=== PATIENT | female | born 1935 | race Caucasian/White ===

== ENCOUNTER → 2016-12-23 | Outpatient (CLI) | payer MEDICARE, OTHER ==
--- NOTE | 2016-12-24 09:58 | Diagnostic Imaging Report ---
EXAMINATION: Bilateral screening mammogram 2D views with tomosynthesis. The current study was also evaluated with a Computer Aided Detection (CAD) system. INDICATION: Screening. PERSONAL HISTORY: No current complaints stated on the questionnaire. COMPARISON: 08/05/2015. FINDINGS: The breasts are composed of heterogeneously dense parenchyma which may decrease mammographic sensitivity. There are scattered benign-appearing calcifications seen. Allowing for technique and positional differences, no suspicious change is seen. IMPRESSION: Dense breasts with no definite change. ACR BI-RADS Category 2: Benign findings. Result letter will be mailed to the patient. Note: At least 10% of breast cancer is not imaged by mammography. Dictated by: Dictated on workstation # [id number]
== END ==
LOC: RAD 12:52
PROVIDERS: ATTEND Family Medicine
DX: Z12.31 Encounter for screening mammogram for malignant neoplasm of breast (principal)
CPT/HCPCS: 77067

== ENCOUNTER → 2017-09-19 | Outpatient (CLI) | payer MEDICARE, OTHER ==
[2017-09-19 15:52] LABS: BUN/CREATININE RATIO 21; CREATININE SERUM 0.81 MG/DL (0.60-1.30); GFR ESTIMATED > 60
== END ==
LOC: LAB 15:10
PROVIDERS: ATTEND Family Medicine
DX: N28.9 Disorder of kidney and ureter, unspecified (principal)
CPT/HCPCS: 36415; 82565; 84520

== ENCOUNTER → 2017-09-22 | Outpatient (CLI) | payer MEDICARE, OTHER ==
[~2017-09-22] MED LIST: CATHETER FLUSH 10 ML SYR IV PRN; IOHEXOL 350 MG/ML 100 ML (OMNIPAQUE 350) VIAL IV ONE; NS 250 ML (IVPB) BAG IV ONE
--- NOTE | 2017-09-22 16:52 | Diagnostic Imaging Report ---
PROCEDURE: CT neck soft tissue with contrast. TECHNIQUE: Multiple contiguous axial images were obtained through the neck after the administration of contrast. INDICATION: Neck swelling. COMPARISON: Thyroid ultrasound of 07/17/12. FINDINGS: Marked enlargement of the thyroid gland with numerous calcified and noncalcified nodules is compatible with a multinodular goiter. The right thyroid lobe is slightly asymmetrically enlarged and has associated dominant thickening at the level of the isthmus. The right thyroid lobe measures 5.8 x 3.6 x 6.5 cm when including the enlarged isthmus. Heterogeneous nodular appearance is similar to prior thyroid ultrasound of 07/17/12. No cervical lymphadenopathy. Calcified plaques of the bilateral proximal internal carotid arteries do not result in significant stenosis. Neck arteries are widely patent. No abnormal mucosal thickening in the pharynx or larynx. There appears to be chronic complete opacification of the right sphenoid sinus with low-attenuation material which is likely inspissated in nature. There is associated periosteal thickening also indicative of chronicity. No concerning abnormality in the cervical spine. Multilevel severe degenerative changes are present. There also may be changes from prior arthrodesis of C3-C4 and C5-C6. Grade 1 anterolisthesis of C7 on T1 is associated with facet osteoarthritis. Lung apices are clear. IMPRESSION: 1. Multinodular thyroid goiter is asymmetrically enlarged in the right thyroid lobe and likely accounts for the right-sided neck swelling. Dictated by: Dictated on workstation # [id number]
== END ==
LOC: RAD 15:21
PROVIDERS: ATTEND Family Medicine
DX: E04.2 Nontoxic multinodular goiter (principal); N28.9 Disorder of kidney and ureter, unspecified
CPT/HCPCS: 70491

== ENCOUNTER 2020-02-12 08:20 | Inpatient (IN) | payer MEDICARE, OTHER ==
[~2020-02-12] VITALS: Ht 160 cm; Wt 54.5 kg
[2020-02-12] VITALS (10 sets, daily range): BP systolic 143–171; BP diastolic 71–93
[2020-02-12] MEDS ORDERED: NS IV 1000 ML 1,000 ML IV STA (08:29)
[2020-02-12] MEDS ORDERED: FAMOTIDINE 20MG/2ML IV (PEPCID) IV STA (08:29)
--- NOTE | 2020-02-12 08:29 | ED GI ---
General Stated Complaint: N/V Source of Information: Patient, EMS Exam Limitations: No Limitations History of Present Illness Date Seen by Provider: Feb 12, 2020 Time Seen by Provider: 08:29 Initial Comments 84-year-old female presents with epigastric discomfort, nausea and vomiting for 2 days. Patient reports that the discomfort is there mainly when she is vomiting. She is having a hard time keeping anything down. She denies any dark tarry stool. Her last bowel movement was 2 days ago. She does not have any lower mid abdominal pain. She has no fevers, chills, cough. Patient reports that she's been under a lot of stress recently and been taken anxiety medications due to the of her . Patient does not have any known exposure to COVID. She has no loss of sense of taste or smell. No other systemic complaint. Allergies and Home Medications Allergies Coded Allergies: No Allergy Information Available (Unverified , 02/12/20) Home Medications ALPRAZolam 0.25 Mg Tablet, 0.25 MG PO BID PRN for ANXIETY, (Reported) Atorvastatin Calcium 10 Mg Tablet, 10 MG PO DAILY, (Reported) Sertraline HCl 25 Mg Tablet, 25 MG PO DAILY, (Reported) Patient Home Medication List Home Medication List Reviewed: Yes Review of Systems Review of Systems Constitutional: No chills, No fever Respiratory: Denies Cough, Denies Shortness of Air Cardiovascular: Denies Chest Pain, Denies Edema, Denies Irregular Heart Rate, Denies Palpitations Gastrointestinal: See HPI; Denies Blood Streaked Stools, Denies Constipated, Denies Diarrhea; Nausea; Denies Rectal Bleeding; Vomiting Genitourinary: No Symptoms Reported Musculoskeletal: no symptoms reported Skin: no symptoms reported Psychiatric/Neurological: No Symptoms Reported Endocrine: No Symptoms Reported Past Aveynsm-Dsbcmz-Jllkib Hx Past Med/Social Hx: Reviewed Nursing Past Med/Soc Hx Physical Exam Vital Signs Vital Signs - First Documented 02/12/20 08:20 Temp 36.2 Pulse 88 Resp 16 B/P (MAP) 177/88 (117) Pulse Ox 97 O2 Delivery Room Air Capillary Refill : Height/Weight/BMI Height: '" Weight: lbs. oz. kg; BMI Method: General Appearance: WD/WN, no apparent distress Neck: full range of motion, supple Respiratory: lungs clear, normal breath sounds, no respiratory distress Cardiovascular: normal peripheral pulses, regular rate, rhythm Gastrointestinal: soft; No distended, No guarding, No rebound; tenderness (mild tenderness epigastric) Extremities: normal range of motion, non-tender Back: no CVA tenderness Neurologic/Psychiatric: alert, normal mood/affect, oriented x 3 Skin: normal color, warm/dry Progress/Results/Core Measures Results/Orders Lab Results Laboratory Tests Test 02/12/20 08:25 02/12/20 08:43 Range/Units White Blood Count 9.4 4.3-11.0 10^3/uL Red Blood Count 4.00 3.80-5.11 10^6/uL Hemoglobin 12.7 11.5-16.0 g/dL Hematocrit 38 35-52 % Mean Corpuscular Volume 96 80-99 fL Mean Corpuscular Hemoglobin 32 25-34 pg Mean Corpuscular Hemoglobin Concent 33 32-36 g/dL Red Cell Distribution Width 12.1 10.0-14.5 % Platelet Count 224 130-400 10^3/uL Mean Platelet Volume 10.1 9.0-12.2 fL Immature Granulocyte % (Auto) 0 % Neutrophils (%) (Auto) 74 42-75 % Lymphocytes (%) (Auto) 16 12-44 % Monocytes (%) (Auto) 10 0-12 % Eosinophils (%) (Auto) 0 0-10 % Basophils (%) (Auto) 0 0-10 % Neutrophils # (Auto) 6.9 1.8-7.8 10^3/uL Lymphocytes # (Auto) 1.5 1.0-4.0 10^3/uL Monocytes # (Auto) 0.9 0.0-1.0 10^3/uL Eosinophils # (Auto) 0.0 0.0-0.3 10^3/uL Basophils # (Auto) 0.0 0.0-0.1 10^3/uL Immature Granulocyte # (Auto) 0.0 0.0-0.1 10^3/uL Sodium Level 141 135-145 MMOL/L Potassium Level 4.2 3.6-5.0 MMOL/L Chloride Level 104 98-107 MMOL/L Carbon Dioxide Level 26 21-32 MMOL/L Anion Gap 11 5-14 MMOL/L Blood Urea Nitrogen 18 7-18 MG/DL Creatinine 0.85 0.60-1.30 MG/DL Estimat Glomerular Filtration Rate > 60 BUN/Creatinine Ratio 21 Glucose Level 151 H 70-105 MG/DL Calcium Level 9.1 8.5-10.1 MG/DL Corrected Calcium 9.1 8.5-10.1 MG/DL Total Bilirubin 0.9 0.1-1.0 MG/DL Aspartate Amino Transf (AST/SGOT) 21 5-34 U/L Alanine Aminotransferase (ALT/SGPT) 15 0-55 U/L Alkaline Phosphatase 94 40-136 U/L C-Reactive Protein High Sensitivity 0.77 H 0.00-0.50 MG/DL Total Protein 6.8 6.4-8.2 GM/DL Albumin 4.0 3.2-4.5 GM/DL Lipase 36 8-78 U/L Urine Color YELLOW Urine Clarity CLEAR Urine pH 5.5 5-9 Urine Specific [place] >=1.030 1.016-1.022 Urine Protein TRACE H NEGATIVE Urine Glucose (UA) NEGATIVE NEGATIVE Urine Ketones 1+ H NEGATIVE Urine Nitrite POSITIVE H NEGATIVE Urine Bilirubin NEGATIVE NEGATIVE Urine Urobilinogen 1.0 < = 1.0 MG/DL Urine Leukocyte Esterase NEGATIVE NEGATIVE Urine RBC (Auto) TRACE-I NEGATIVE Urine RBC 0-2 /HPF Urine WBC 5-10 H /HPF Urine Squamous Epithelial Cells 2-5 /HPF Urine Crystals PRESENT H /LPF Urine Calcium Oxalate Crystals RARE H /LPF Urine Bacteria LARGE H /HPF Urine Casts NONE /LPF Urine Mucus NEGATIVE /LPF Urine Culture Indicated YES My Orders Orders - WOOD,J CARLOS L DO Cbc With Automated Diff (02/12/20 08:29) Comprehensive Metabolic Panel (02/12/20 08:29) Hs C Reactive Protein (02/12/20 08:29) Lipase (02/12/20 08:29) Ua Culture If Indicated (02/12/20 08:29) Acute Abd Series (02/12/20 08:29) Ns Iv 1000 Ml (Sodium Chloride 0.9%) (02/12/20 08:29) Famotidine Injection (Pepcid Injection) (02/12/20 08:29) Urine Culture (02/12/20 08:43) Ceftriaxone For Iv Use (Rocephin For I (02/12/20 09:15) Ct Abdomen/Pelvis W (02/12/20 09:15) Iohexol Injection (Omnipaque 350 Mg/Ml 1 (02/12/20 09:30) Received Contrast (Hold Metformin- Contr (02/12/20 09:30) Ns (Ivpb) (Sodium Chloride 0.9% Ivpb Bag (02/12/20 09:30) Mrsa Screen (Icu,Preop,Cath) (02/12/20 12:01) Mrsa Nursing Screening/Treatme .admit (02/12/20 12:01) Dexamethasone Injection (Decadron Inje (02/12/20 12:18) Ondansetron Injection (Zofran Injectio (02/12/20 12:18) Rocuronium 5 Ml Syringe (Rocuronium 5 Ml (02/12/20 12:18) Propofol Injection (Diprivan Injection) (02/12/20 12:18) Glycopyrrolate Injection (Robinul Inject (02/12/20 12:18) Neostigmine 3 Mg/3 Ml Vial (Neostigmine (02/12/20 12:18) Lidocaine 2% Pf 5 Ml (Xylocaine 2% Pf) (02/12/20 12:18) Sevoflurane (15 Min) Inhal Veronique (Ultane ( (02/12/20 12:18) Fentanyl Injection (Sublimaze Injection (02/12/20 12:19) Lidocaine/Epi 1% 1:200,00 (Xylocaine/Epi (02/12/20 12:21) Medications Given in ED Current Medications Medications Dose Ordered Sig/Rohan Route Start Time Stop Time Status Last Admin Dose Admin Iohexol 75 ml ONCE ONCE IV 02/12/20 09:30 02/12/20 09:31 DC 02/12/20 09:47 66 ML Sodium Chloride 100 ml ONCE ONCE IV 02/12/20 09:30 02/12/20 09:31 DC 02/12/20 09:47 80 ML Vital Signs/I&O 02/12/20 08:20 Temp 36.2 Pulse 88 Resp 16 B/P (MAP) 177/88 (117) Pulse Ox 97 O2 Delivery Room Air Progress Progress Note : Progress Note Patient seen by Dr. Starks in the ER. They suspect that she has a femoral hernia that is incarcerated on the right. Able to or for further treatment and evaluation Diagnostic Imaging Diagonstic Imaging: Xray, CT Plain Films/CT/US/NM/MRI: abdomen Comments [facility] [place], [place] NAME: MONIKA SINGER [facility] REC#: [id number] PT STATUS: REG ER : 1935 PHYSICIAN: J CARLOS WOOD DO ADMIT DATE: 02/12/20/ER Draft Date of Exam:02/12/20 CT ABDOMEN/PELVIS W INDICATION: Abdominal pain. TECHNIQUE: Multiple contiguous axial images were obtained through the abdomen and pelvis after administration of intravenous contrast. Auto Exposure Controls were utilized during the CT exam to meet ALARA standards for radiation dose reduction. All CT scans use one or more of the following dose optimizing techniques: automated exposure control, MA and/or KvP adjustment based on patient size and exam type or iterative reconstruction. There is no previous CT the abdomen and pelvis for comparison Visualized portions of the lung bases are clear. There were no pleural fluid collections. There is no free intraperitoneal air. The liver shows no focal lesions. Gallbladder appears normal. The spleen, adrenals, and pancreas appear normal. Kidneys bilaterally appear unremarkable. There is no retroperitoneal mass or adenopathy. There is a minimal trace of free fluid around the liver. Patient's had previous hysterectomy. There is diffuse dilatation of small bowel loops. There appears to be obstruction at the level of a right inguinal hernia with decompression of small bowel loops beyond this point. Colon shows mild to moderate stool but is not dilated. IMPRESSION: Evidence of small bowel obstruction due to a incarcerated right inguinal hernia. There is no abdominal mass lesion. There is a trace of free fluid around the liver. Departure Communication (Admissions) Time/Spoke to Admitting Phy: 11:49 Patient seen in the ER by Dr. Starks Impression Primary Impression: Small bowel obstruction Additional Impression: Incarcerated femoral hernia Disposition: ADMITTED INPATIENT Condition: Stable Admissions Decision to Admit Reason: Admit from ER (General) Decision to Admit/Date: Feb 12, 2020 Time/Decision to Admit Time: 11:50 Departure-Patient Inst. Referrals: ADONIS PRASAD DO (PCP/Family) Primary Care Physician J CARLOS WOOD DO Feb 12, 2020 08:29
[2020-02-12] MEDS ORDERED: SERT25TA5 PO (08:40)
[2020-02-12] MEDS ORDERED: ATOR10TA66 PO (08:40)
[2020-02-12] MEDS ORDERED: ALPR0.254 PO (08:40)
[2020-02-12 08:46] LABS: BASOPHILS % (AUTO) 0 % (0-10); EOSINOPHILS % (AUTO) 0 % (0-10); HEMATOCRIT 38 % (35-52); HEMOGLOBIN 12.7 g/dL (11.5-16.0); LYMPHOCYTES # (AUTO) 1.5 10^3/uL (1.0-4.0); LYMPHOCYTES % (AUTO) 16 % (12-44); MEAN CORPUSCULAR HEMOGLOBIN 32 pg (25-34); MEAN CORPUSCULAR HGB CONC 33 g/dL (32-36); MEAN CORPUSCULAR VOLUME 96 fL (80-99); MEAN PLATELET VOLUME 10.1 fL (9.0-12.2); MONOCYTES # (AUTO) 0.9 10^3/uL (0.0-1.0); MONOCYTES % (AUTO) 10 % (0-12); NEUTROPHILS # (AUTO) 6.9 10^3/uL (1.8-7.8); NEUTROPHILS % (AUTO) 74 % (42-75); PLATELET COUNT 224 10^3/uL (130-400); WHITE BLOOD COUNT 9.4 10^3/uL (4.3-11.0)
[2020-02-12 08:56] LABS: BILIRUBIN,URINE NEGATIVE (NEGATIVE); CLARITY,URINE CLEAR; COLOR,URINE YELLOW; GLUCOSE, URINE (UA) NEGATIVE (NEGATIVE); KETONES,URINE 1+ (NEGATIVE); LEUKOCYTE ESTERASE ,URINE NEGATIVE (NEGATIVE); NITRITE,URINE POSITIVE (NEGATIVE); PH,URINE 5.5 (5-9); PROTEIN,URINE TRACE (NEGATIVE)
--- NOTE | 2020-02-12 09:00 | NUR ---
TECH TALKED WITH DAUGHTER ON THE PHONE ET UPDATE GIVEN AND NOTIFIED HER WE WOULD CALL WHEN WE KNEW MORE.
[2020-02-12 09:08] LABS: CHLORIDE 104 MMOL/L (98-107); POTASSIUM 4.2 MMOL/L (3.6-5.0); SODIUM 141 MMOL/L (135-145)
[2020-02-12 09:10] LABS: CALCIUM 9.1 MG/DL (8.5-10.1)
[2020-02-12 09:11] LABS: GLUCOSE 151 MG/DL (70-105); TOTAL PROTEIN 6.8 GM/DL (6.4-8.2)
[2020-02-12 09:12] LABS: CARBON DIOXIDE 26 MMOL/L (21-32)
[2020-02-12 09:13] LABS: BILIRUBIN,TOTAL 0.9 MG/DL (0.1-1.0)
[2020-02-12 09:13] LABS: BACTERIA,URINE LARGE /HPF; CALCIUM OXALATE CRYSTALS,UR RARE /LPF; RBC,URINE 0-2 /HPF
[2020-02-12 09:14] LABS: ALKALINE PHOSPHATASE 94 U/L (40-136); CREATININE SERUM 0.85 MG/DL (0.60-1.30); GFR ESTIMATED > 60
[2020-02-12 09:15] LABS: BUN/CREATININE RATIO 21
[2020-02-12] MEDS ORDERED: cefTRIAXone FOR IV USE 1,000 MG in WATER (STERILE) FOR INJECTION 10 ML IV STA (09:15)
[2020-02-12 09:17] LABS: ALANINE AMINOTRANSFERASE 15 U/L (0-55)
--- NOTE | 2020-02-12 09:17 | NUR ---
IN TALKING TO THE PT AT THIS TIME.
[2020-02-12 09:18] LABS: LIPASE 36 U/L (8-78)
--- NOTE | 2020-02-12 09:22 | Diagnostic Imaging Report ---
INDICATION: Nausea and vomiting EXAMINATION: Portable AP chest. FINDINGS: The lungs are well-aerated and clear. The heart is not enlarged. No pulmonary edema or hilar adenopathy. No pneumothorax or pleural effusion. No bony abnormalities. IMPRESSION: Normal portable chest. Dictated by: Dictated on workstation # [id number]
[2020-02-12] MEDS ORDERED: NS 100 ML (IVPB) BAG IV ONE (09:30)
[2020-02-12] MEDS ORDERED: HOLD METFORMIN - RECEIVED CONTRAST 20 ML VIAL IV SCH (09:30)
[2020-02-12] MEDS ORDERED: IOHEXOL 350 MG/ML 100 ML (OMNIPAQUE 350) VIAL IV ONE (09:30)
--- NOTE | 2020-02-12 10:19 | Diagnostic Imaging Report ---
INDICATION: Abdominal pain. TECHNIQUE: Multiple contiguous axial images were obtained through the abdomen and pelvis after administration of intravenous contrast. Auto Exposure Controls were utilized during the CT exam to meet ALARA standards for radiation dose reduction. All CT scans use one or more of the following dose optimizing techniques: automated exposure control, MA and/or KvP adjustment based on patient size and exam type or iterative reconstruction. There is no previous CT the abdomen and pelvis for comparison Visualized portions of the lung bases are clear. There were no pleural fluid collections. There is no free intraperitoneal air. The liver shows no focal lesions. Gallbladder appears normal. The spleen, adrenals, and pancreas appear normal. Kidneys bilaterally appear unremarkable. There is no retroperitoneal mass or adenopathy. There is a minimal trace of free fluid around the liver. Patient's had previous hysterectomy. There is diffuse dilatation of small bowel loops. There appears to be obstruction at the level of a right inguinal hernia with decompression of small bowel loops beyond this point. Colon shows mild to moderate stool but is not dilated. IMPRESSION: Evidence of small bowel obstruction due to a incarcerated right inguinal hernia. There is no abdominal mass lesion. There is a trace of free fluid around the liver. Dictated by: Dictated on workstation # [id number]
--- NOTE | 2020-02-12 11:12 | NUR ---
Selvin velasquez in [facility] - 02/12/20 at 1112 by KONG bipap removed per verbal order.
--- NOTE | 2020-02-12 11:12 | NUR ---
Selvin velasquez in [facility] - 02/12/20 at 1132 by KONG BIPAP REMOVED PER VERBAL ORDER. OXYGEN APPLIED AT 10LNC.
--- NOTE | 2020-02-12 11:29 | NUR ---
IN ROOM TALKING TO THE PT AT THIS TIME. FAMILY UPDATED.
--- NOTE | 2020-02-12 11:50 | NUR ---
DR. ELKINS HERE TO SEE THE PT.
--- NOTE | 2020-02-12 11:59 | Consultation - Surgery ---
History of Present Illness History of Present Illness Patient Consulted On(rabia/time) 02/12/20 11:53 Time Seen by Provider: 11:41 History of Present Illness Surgery asked to consult regarding Nausea, Vomiting and abdominal pain. HPI per ED: 84-year-old female presents with epigastric discomfort, nausea and vomiting for 2 days. Patient reports that the discomfort is there mainly when she is vomiting. She is having a hard time keeping anything down. She denies any dark tarry stool. Her last bowel movement was 2 days ago. She does not have any lower mid abdominal pain. She has no fevers, chills, cough. Patient reports that she's been under a lot of stress recently and been taken anxiety medications due to the of her . Patient does not have any known exposure to COVID. She has no loss of sense of taste or smell. No other systemic complaint. When I spoke to pt she states she hasn't been able to eat since Tuesday. She has never had pain like this before. Rates the pain as 1-2 out of 10; radiating down groin towards leg. Nothing really makes it worse or better; she was actually more concerned about the vomiting. Allergies and Home Medications Allergies Coded Allergies: No Allergy Information Available (Unverified , 09/22/17) Patient Home Medication List Home Medication List Reviewed: Yes Past Tehjemh-Pswpzz-Lkecog Hx Patient Social History Alcohol Use: Denies Use Recreational Drug Use: No Smoking Status: Never a Smoker Recent Foreign Travel: No Contact w/Someone Who Travel: No Recent Infectious Disease Expo: No Recent Hopitalizations: No Surgeries History of Surgeries: Yes Surgeries: Hysterectomy, Orthopedic (knee surgery) Respiratory History of Respiratory Disorde: No Cardiovascular History of Cardiac Disorders: Yes Cardiac Disorders: High Cholesterol Neurological History of Neurological Disord: No Genitourinary History of Genitourinary Disor: No Gastrointestinal History of Gastrointestinal Di: No Musculoskeletal History of Musculoskeletal Dis: No Endocrine History of Endocrine Disorders: No HEENT History of HEENT Disorders: No Loss of Vision: Denies Hearing Impairment: Denies Cancer History of Cancer: No Psychosocial History of Psychiatric Problem: Yes Behavioral Health Disorders: Anxiety Integumentary History of Skin or Integumenta: No Family Medical History Significant Family History: Hypertension, Stroke (both parents) Review of Systems-General Constitutional: No chills, No diaphoresis; weakness EENTM: No blurred vision, No double vision, No mouth pain, No mouth swelling, No epistaxis Respiratory: No cough, No dyspnea on exertion, No hemoptysis, No short of breath Cardiovascular: No chest pain, No edema, No palpitations Gastrointestinal: abdominal pain; No dysphagia, No hematemesis, No jaundice; loss of appetite; No melena; nausea, vomiting Genitourinary: No dysuria, No frequency, No hematuria Musculoskeletal: joint pain, joint swelling, muscle pain, muscle stiffness Skin: No change in color, No change in hair/nails Psychiatric/Neurological: Anxiety, Depressed; Denies Seizure, Denies Tremors Other pt denies any hx of abnormal bleeding or bruising Physical Exam-General Problems Physical Exam Vital Signs Vital Signs - First Documented 02/12/20 08:20 Temp 36.2 Pulse 88 Resp 16 B/P (MAP) 177/88 (117) Pulse Ox 97 O2 Delivery Room Air Capillary Refill : Less Than 3 Seconds General Appearance: WD/WN, thin Eyes: Bilateral Eye PERRL, Bilateral Eye EOMI HEENT: pharynx normal; No scleral icterus (R), No scleral icterus (L) Neck: non-tender, supple Respiratory: chest non-tender, lungs clear, normal breath sounds, no respiratory distress, no accessory muscle use Cardiovascular: regular rate, rhythm, no murmur Gastrointestinal: soft, no organomegaly; No distended; hernia (femoral) Back: no CVA tenderness, no vertebral tenderness Extremities: normal range of motion, no pedal edema, no calf tenderness, normal capillary refill Neurologic/Psychiatric: cleat feeder II-XII nml as tested, no motor/sensory deficits, alert, normal mood/affect, oriented x 3 Skin: normal color, warm/dry Lymphatic: no adenopathy (neck, axilla or groin) Data Review Labs Laboratory Tests 02/12/20 08:25: White Blood Count 9.4, Red Blood Count 4.00, Hemoglobin 12.7, Hematocrit 38, Me an Corpuscular Volume 96, Mean Corpuscular Hemoglobin 32, Mean Corpuscular Hemoglobin Concent 33, Red Cell Distribution Width 12.1, Platelet Count 224, Mean Platelet Volume 10.1, Immature Granulocyte % (Auto) 0, Neutrophils (%) (Auto) 74, Lymphocytes (%) (Auto) 16, Monocytes (%) (Auto) 10, Eosinophils (%) (Auto) 0, Basophils (%) (Auto) 0, Neutrophils # (Auto) 6.9, Lymphocytes # (Auto) 1.5, Monocytes # (Auto) 0.9, Eosinophils # (Auto) 0.0, Basophils # (Auto) 0.0, Immature Granulocyte # (Auto) 0.0, Sodium Level 141, Potassium Level 4.2, Chloride Level 104, Carbon Dioxide Level 26, Anion Gap 11, Blood Urea Nitrogen 18, Creatinine 0.85, Estimat Glomerular Filtration Rate > 60, BUN/Creatinine Ratio 21, Glucose Level 151H, Calcium Level 9.1, Corrected Calcium 9.1, Total Bilirubin 0.9, Aspartate Amino Transf (AST/SGOT) 21, Alanine Aminotransferase (ALT/SGPT) 15, Alkaline Phosphatase 94, C-Reactive Protein High Sensitivity 0.77H, Total Protein 6.8, Albumin 4.0, Lipase 36 02/12/20 08:43: Urine Color YELLOW, Urine Clarity CLEAR, Urine pH 5.5, Urine Specific [place] >=1.030, Urine Protein TRACEH, Urine Glucose (UA) NEGATIVE, Urine Ketones 1+H, Urine Nitrite POSITIVEH, Urine Bilirubin NEGATIVE, Urine Urobilinogen 1.0, Urine Leukocyte Esterase NEGATIVE, Urine RBC (Auto) TRACE-I, Urine RBC 0-2, Urine WBC 5-10H, Urine Squamous Epithelial Cells 2-5, Urine Crystals PRESENTH, Urine Calcium Oxalate Crystals RAREH, Urine Bacteria LARGEH, Urine Casts NONE, Urine Mucus NEGATIVE, Urine Culture Indicated YES Radiology Draft Date of Exam:02/12/20 CT ABDOMEN/PELVIS W INDICATION: Abdominal pain. TECHNIQUE: Multiple contiguous axial images were obtained through the abdomen and pelvis after administration of intravenous contrast. Auto Exposure Controls were utilized during the CT exam to meet ALARA standards for radiation dose reduction. All CT scans use one or more of the following dose optimizing techniques: automated exposure control, MA and/or KvP adjustment based on patient size and exam type or iterative reconstruction. There is no previous CT the abdomen and pelvis for comparison Visualized portions of the lung bases are clear. There were no pleural fluid collections. There is no free intraperitoneal air. The liver shows no focal lesions. Gallbladder appears normal. The spleen, adrenals, and pancreas appear normal. Kidneys bilaterally appear unremarkable. There is no retroperitoneal mass or adenopathy. There is a minimal trace of free fluid around the liver. Patient's had previous hysterectomy. There is diffuse dilatation of small bowel loops. There appears to be obstruction at the level of a right inguinal hernia with decompression of small bowel loops beyond this point. Colon shows mild to moderate stool but is not dilated. IMPRESSION: Evidence of small bowel obstruction due to a incarcerated right inguinal hernia. There is no abdominal mass lesion. There is a trace of free fluid around the liver. Dictated on workstation # [id number] Dict: 02/12/20 1011 Trans: 02/12/20 1018 [facility] [id number] Interpreted by: ELSA VU MD Assessment/Plan Assessment/Plan Assessment/Plan Incarcerated Inguinal vs Femoral I looked at the CT myself and am concerned that because this is incarcerated with signs of small bowel obstruction, there could be necrotic bowel. I believe this is probably a femoral hernia but could be inguinal. I explained to her about my concern of ischemic bowel and possible need for bowel resection. I discussed the surgery with her; risks and complications not limited to pain, bleeding, infection, scar, damage to bowel and need for further procedure. I will get consent for procedure and start IV ABX, IV fluids, pain control. She is going down emergently for Laparoscopic Femoral/Inguinal herniarraphy with possible mesh placement, possible bowel resection and all other indicated procedures (Robotically assisted). All questions answered to her satisfaction. MICHAEL ELKINS DO Feb 12, 2020 11:58
[2020-02-12] MEDS ORDERED: NEOSTIGMINE 3 MG/3 ML VIAL ONE (12:18)
[2020-02-12] MEDS ORDERED: ONDANSETRON 4 MG/2 ML (SDV) Z0FRAN ONE ×2 (12:18→16:45)
[2020-02-12] MEDS ORDERED: GLYCOPYRROLATE 0.2 MG/ML (ROBINUL) 2 ML VIAL ONE (12:18)
[2020-02-12] MEDS ORDERED: ROCURONIUM 10 MG/ML 5 ML SYRINGE IV ONE ×2 (12:18→16:51)
[2020-02-12] MEDS ORDERED: LIDOCAINE PF 2% 5 ML (XYLOCAINE) VIAL ONE (12:18)
[2020-02-12] MEDS ORDERED: proPOfol 200 MG/20 ML (DIPRIVAN) VIAL IV ONE (12:18)
[2020-02-12] MEDS ORDERED: SEVOFLURANE (ULTANE) 15 ML INHAL SOLN ONE ×3 (12:18→16:51)
[2020-02-12] MEDS ORDERED: fentaNYL INJECTION 100 MCG/2 ML AMP ONE (12:19)
--- NOTE | 2020-02-12 12:20 | NUR ---
DR ELKINS NOTIFIED THAT THE DAUGHTER DEVON WOULD LIKE TO TALK TO HIM BY PHONE AFTER THE SURGERY IS COMPLETE.
[2020-02-12] MEDS ORDERED: LIDOCAINE/EPI 1%-1:200,000 (XYLOCAINE) 30 ML VIAL ONE (12:21)
[2020-02-12] MEDS ORDERED: LACTATED RINGERS 1,000 ML IV PRN (14:00)
[2020-02-12] MEDS: LACTATED RINGERS 1,000 ML IV PRN ×2 (14:00→15:28)
[2020-02-12] MEDS ORDERED: MIDAZOLAM 2 MG/2 ML (VERSED) VIAL ONE (14:16)
[2020-02-12] MEDS ORDERED: SUGAMMADEX 500 MG/5 ML VIAL (BRIDION) IV ONE (16:26)
--- NOTE | 2020-02-12 16:32 | Progress Note-Post Operative ---
Post-Operative Progess Note Surgeon (s)/Application Assistant (s) Surgeon MICHAEL ELKINS DO Application Assistant: Deng Pre-Operative Diagnosis Right Inguinal vs Femoral incarcerated hernia, PSBO Post-Operative Diagnosis Incarcerated Right Inguinal hernia Ischemic bowel PSBO Procedure & Operative Findings Date of Procedure 02/12/20 Procedure Performed/Findings 1. Laparoscopic right inguinal herniarraphy with mesh placement; Robotically assisted 2. Small bowel resection; open Anesthesia Type GET Estimated Blood Loss Estimated blood loss (mL): less than 50ml Specimens/Packing Specimens Removed portion of ischemic bowel MICHAEL ELKINS DO Feb 12, 2020 16:32
[2020-02-12] MEDS ORDERED: KETOROLAC 15 MG/ML VIAL IVP SCH (16:45)
[2020-02-12] MEDS ORDERED: ACETAMINOPHEN 500 MG TAB (TYLENOL) PO SCH (16:45)
[2020-02-12] MEDS ORDERED: morphine INJ 10 MG/ML 1ML (SYR OR VIAL) ONE (16:45)
[2020-02-12] MEDS ORDERED: ONDANSETRON 4 MG/2 ML (SDV) Z0FRAN IVP PRN ×3 (16:45→19:00)
[2020-02-12] MEDS ORDERED: morphine INJ 4 MG/ML 1 ML (VIAL/SYRINGE) IVP PRN ×2 (16:45→19:00)
[2020-02-12] MEDS ORDERED: ceFAZolin 2 GM IV Premixed 50 ML IV SCH (16:45)
[2020-02-12] MEDS ORDERED: LACTATED RINGERS 1,000 ML IV SCH (16:45)
[2020-02-12] MEDS ORDERED: FUROSEMIDE 40 MG/4 ML INJ (LASIX) ONE (16:47)
[2020-02-12] MEDS ORDERED: PHENYLEPHRINE 100 MCG/ML 10 ML (ANESTHESIA) SYR ONE (16:50)
[2020-02-12] MEDS ORDERED: MEPERIDINE (DEMEROL) INJ 50 MG/ML IVP ONE (17:00)
[2020-02-12] MEDS ORDERED: FUROSEMIDE 40 MG/4 ML INJ (LASIX) IVP ONE (17:00)
[2020-02-12] MEDS ORDERED: morphine INJ 10 MG/ML 1ML (SYR OR VIAL) IVP ONE (17:00)
--- NOTE | 2020-02-12 17:06 | Operative Report ---
Operative Report Date of Procedure/Surgery Feb 12, 2020 Surgeon (s) MICHAEL ELKINS DO Grape Crusher (s): Deng Post-Operative Diagnosis Incarcerated Right Inguinal hernia Ischemic bowel PSBO Procedure Performed 1. Laparoscopic Right Inguinal herniarraphy with mesh placement 2. Small bowel resection - open Description of Procedure Anesthesia Type: General Estimated blood loss (mL): less than 50ml Specimen(s) collected/removed portion of small bowel Description of the Procedure INDICATION FOR PROCEDURE: The patient is an 84-year-old female who came to the ER with nausea and vomiting, thought to have a PSBO. CT done showed incarcerated right femoral vs inguinal hernia. Also worried about possible ishemic bowel. FINDINGS: The patient had some adhesions in the midline from previous surgery and found an incarcerated right inguinal hernia; with small bowel stuck in the hernia. Upon removing the intestine it was found to be ischemic. There and a large indirect hernia sac as well as a cord lipoma. Right side had been marked and all agreed on this prior to procedure.. PROCEDURE NOTE: After informed consent was obtained, the patient was brought to the operating room, placed on the table in supine position. She was sterilely prepped and draped in normal fashion. Local lidocaine was used to infiltrate the skin above the umbilicus. I made an incision with #11 blade, carried down through the skin into subcutaneous tissue, then deepened down to subcutaneous tissue with Bovie electrocautery down to the fascia. Fascia was incised with Bovie electrocautery, then bluntly entered the abdomen, swept a finger around, placed 0 Vicryl [id number] suture, then placed 11 mm trocar port under direct visualization. Created pneumoperitoneum. I then placed 2 more ports on the right and left side of the midline port approximately 10 cm away and just above the port using local lidocaine, 11 blade for stab incision making 8 mm incision and advancing the robotic trocar ports under direct visualization watching as they entered. The patient was placed in Trendelenburg. Upon entry, able to look and noticed patient had some adhesions in the midline and some of these were taken down so I could get the right trochar into abdomen. I then looked into right side of pelvis and could see an incarcerated right inguinal hernia with some small bowel in there. This was not easily pulled out. She had a large indirect hernia sac on the right and elected to start taking down the peritoneum to help get the intestine out of the hernia. Pictures were taken. At this point, then picked a spot about 8 cm away from the hernia defect on the right and went through the peritoneum with Bovie electrocautery and scissors right just lateral to the medial umbilical ligament and then went through the medial umbilical ligament towards the midline. Again, in this preperitoneal space, then dissected down going in the parietal space of the preperitoneum down to visualize Edenilson's ligament and pubic tubercle, able to dissect 2 cm across midline and then 2 cm posterior to the Edenilson's ligament and then started came across laterally to all the way out about another 8 cm. At this time, seen in the visceral space taking this peritoneum down, able to then visualize the hernia and small bowel. Carefully started taking this down and removing the small bowel from the hernia defect; able to visualize the round ligament as well as the vessels and the iliac vein. Parietalized the round ligament right in the groove between Edenilson's and iliac vein, then able to carefully take down the peritoneum and started working on removing the indirect hernia sac, took a while to get the indirect hernia sac and then at this time as well reduced a cord lipoma, able to see the direct hernia space, there was nothing seen here, there is nothing in the femoral space either just a large indirect inguinal hernia, which we had completely taken down parietalized. Had come across and sacrificed the round ligament. When the small bowel came out it looked ischemic; elected to leave it alone and come back to assess it after completion of the hernia repair. At this point, make sure the posterior lateral dissection was carried all the way out and at the same level as the Edenilson's ligament, so we could place a mesh. We then placed a Bard 3D light mesh. It laid in nicely covered all the area, sutured at the pubic tubercle and Edenilson's ligament with a 3-0 Vicryl suture and then laterally with another 3-0 Vicryl, again laid in nicely and at this point, then closed the peritoneum with a barbed suture (V-lock) running from medial to the lateral tying to itself. There was a small hole. This was closed with 3-0 Vicryl and then also attached the hernia sac to this with a 3-0 Vicryl. This held up nicely. Picture was taken. At this point then rechecked the small bowel and unfortunately it still looked ischemic. Decided that we would do a small bowel resection. Undocked the robot and placed the camera through the left lateral port and then able to place a grasper through the supraumbilical port to grab this necrotic ischemic bowel. Then increase the incision down around the umbilicus and was about a 2 inch incision and then able to pull the intestine up through this incision. At this point then made defects in the antimesenteric border of the intestine placed a LILIAM LILIAM 55 on either side and then clamped held for 30 seconds and then fired thereby creating a [id number] functional end-to-end anastomosis. Used a reload to then cut off and close the enteroenterotomy and then closed the defect of the mesentery with 3-0 Vicryl pop-off there is some bleeding from the edge of the mesentery as well as the intestine this was also closed with 3-0 Vicryl pop-off. Then dropped the small bowel back in place and closed the midline incision with a #1 PDS double-stranded suture running from superior portion of the inferior portion tying to itself. Recreated pneumoperitoneum and looked with the camera; incision looked good, took a picture of this area. Bowel looked good then took a picture of this. Then placed the patient supine, removed all ports under direct visualization, allowed pneumoperitoneum to escape. Copiously irrigated all incisions with normal saline, then closed the supraumbilical incision and the two small 8 mm incisions with dewey. Area was cleaned and dried. Band-aids were placed. The patient tolerated the procedure. Sponge, instrument and needle count correct at the end of the case. She was then transferred to recovery room in stable condition. Dr. Vilchis assisted in this case helping to make incisions, close incisions, identified anatomy and he passed suture and instruments. Findings of the Procedure Incarcerated Right inguinal hernia Ischemic bowel Allergies and Home Medications Allergies Coded Allergies: No Allergy Information Available (Unverified , 02/12/20) Home Medications ALPRAZolam 0.25 Mg Tablet, 0.25 MG PO BID PRN for ANXIETY, (Reported) Atorvastatin Calcium 10 Mg Tablet, 10 MG PO DAILY, (Reported) Sertraline HCl 25 Mg Tablet, 25 MG PO DAILY, (Reported) Patient Home Medication List Home Medication List Reviewed: Yes MICHAEL ELKINS DO Feb 12, 2020 17:06
--- NOTE | 2020-02-12 17:44 | NUR ---
Monika Singer admitted to room 415, with an admitting diagnosis of post inguinal hernia repair and small bowel resection , on 02/12/20 from AM via , accompanied by .MONIKA SINGER introduced to surroundings, call light, bed controls, phone, TV, temperature control, lights, meal times, smoking policy, visitor policy, side rail policy, bathrooms and showers. Patient Rights given to patient in the handbook.MONIKA SINGER verbalizes understanding that [facility] is not responsible for the loss or damage to any personal effects or valuables that are kept in the patients posession during their hospitalization. MONIKA SINGER verbalizes understanding of Interdisciplinary Patient Education. Patient and/or family were informed about the Rapid Response Team and its purpose.
[2020-02-12] MEDS: ACETAMINOPHEN 500 MG TAB (TYLENOL) PO SCH (19:22)
[2020-02-12] MEDS: LACTATED RINGERS 1,000 ML IV SCH (19:22)
[2020-02-12] MEDS: KETOROLAC 15 MG/ML VIAL IVP SCH (19:23)
[2020-02-12] MEDS: ENOXAPARIN 30 MG/0.3 ML (LOVENOX) SYR SC SCH (19:23)
[2020-02-12] MEDS: ceFAZolin 2 GM IV Premixed 50 ML IV SCH (19:24)
[2020-02-13] VITALS: BP 121/58
[2020-02-13] MEDS: KETOROLAC 15 MG/ML VIAL IVP SCH ×3 (01:08→12:29)
[2020-02-13] MEDS: LACTATED RINGERS 1,000 ML IV SCH ×3 (02:44→20:31)
[2020-02-13] MEDS: ACETAMINOPHEN 500 MG TAB (TYLENOL) PO SCH ×3 (02:45→20:06)
[2020-02-13] MEDS: ceFAZolin 2 GM IV Premixed 50 ML IV SCH (02:47)
[2020-02-13 04:53] VITALS: BP 116/56
--- NOTE | 2020-02-13 07:29 | Progress Note - Surgery ---
[place] MED STUDENT 02/13/20 0728: Subjective Date Seen by a Provider: Feb 13, 2020 Time Seen by a Provider: 07:10 Subjective/Events-last exam Pt seen and examined. POD#1 s/p R inguinal hernia repair and small bowel resection. She says she has mild discomfort to mid-abd while laying still, worsened with movement. No BM since Tuesday, denies passing flatus since surgery yesterday. Denies chest pain, SOB, fever, chills, N/V. She had no questions/concerns at the time of examination. Review of Systems General: No Chills Pulmonary: No Dyspnea, No Cough Cardiovascular: No: Chest Pain, Palpitations, Lt Headedness Gastrointestinal: Abdominal Pain (mid-abd, dull, worse with movement); No: Nausea, Vomiting Genitourinary: No Dysuria Neurological: No: Weakness, Numbness Objective Exam Vital Signs Date Time Temp Pulse Resp B/P (MAP) Pulse Ox O2 Delivery O2 Flow Rate FiO2 02/13/20 04:53 37.0 86 18 116/56 (76) 90 Nasal Cannula 2.00 02/13/20 00:00 36.0 88 18 121/58 (79) 98 Nasal Cannula 2.00 02/12/20 21:00 Room Air 02/12/20 19:46 36.6 89 18 160/75 (103) 99 Nasal Cannula 2.00 02/12/20 18:12 97 Nasal Cannula 2.00 02/12/20 17:55 36.1 86 16 171/80 (110) 93 Room Air 02/12/20 17:40 Room Air 02/12/20 17:40 36.4 18 145/76 (99) 93 Room Air 02/12/20 17:32 Room Air 02/12/20 17:30 18 143/74 (97) 93 Room Air 02/12/20 17:20 OxyMask 3 02/12/20 17:20 18 151/75 (100) 100 OxyMask 3 02/12/20 17:10 18 160/71 (100) 100 OxyMask 6 02/12/20 17:06 OxyMask 6 02/12/20 17:00 18 147/91 (109) 100 OxyMask 6 02/12/20 16:55 OxyMask 6 02/12/20 16:50 18 158/89 (112) 100 OxyMask 6 02/12/20 16:43 36.3 14 160/93 (115) 100 OxyMask 6 02/12/20 16:43 OxyMask 6 02/12/20 13:30 36.7 97 18 150/76 (100) 95 Room Air 02/12/20 12:40 96 16 154/79 98 Room Air 02/12/20 08:20 36.2 88 16 177/88 (117) 97 Room Air I & O 02/13/20 07:00 Intake Total 6300 ml Output Total 1175 ml Balance 5125 ml Capillary Refill : Less Than 3 Seconds General Appearance: No Apparent Distress, WD/WN HEENT: PERRL/EOMI Neck: Full Range of Motion, Normal Inspection, Non Tender Respiratory: Chest Non Tender, Lungs Clear, Normal Breath Sounds, No Accessory Muscle Use, No Respiratory Distress Cardiovascular: Regular Rate, Rhythm, No Gallop, No JVD, No Murmur Gastrointestinal: soft; No distended, No guarding, No rebound; tenderness (mild tenderness epigastric-umbilical region) Extremity: Normal Inspection, Normal Range of Motion, Non Tender Neurologic/Psychiatric: Alert, Oriented x3, No Motor/Sensory Deficits, Normal Mood/Affect Skin: Normal Color, Warm/Dry, Other (3x laparoscopic incision sites: LUQ, RUQ, umbilical. secured with dewey and overlying bandages. Umbilical incision is draining small amounts of sanguinous drainage. Incisions are well approximated without erythema.) Results Lab Laboratory Tests 02/12/20 08:25: White Blood Count 9.4, Red Blood Count 4.00, Hemoglobin 12.7, Hematocrit 38, Mean Corpuscular Volume 96, Mean Corpuscular Hemoglobin 32, Mean Corpuscular Hemoglobin Concent 33, Red Cell Distribution Width 12.1, Platelet Count 224, Mean Platelet Volume 10.1, Immature Granulocyte % (Auto) 0, Neutrophils (%) (Auto) 74, Lymphocytes (%) (Auto) 16, Monocytes (%) (Auto) 10, Eosinophils (%) (Auto) 0, Basophils (%) (Auto) 0, Neutrophils # (Auto) 6.9, Lymphocytes # (Auto) 1.5, Monocytes # (Auto) 0.9, Eosinophils # (Auto) 0.0, Basophils # (Auto) 0.0, Immature Granulocyte # (Auto) 0.0, Sodium Level 141, Potassium Level 4.2, Chloride Level 104, Carbon Dioxide Level 26, Anion Gap 11, Blood Urea Nitrogen 18, Creatinine 0.85, Estimat Glomerular Filtration Rate > 60, BUN/Creatinine Ratio 21, Glucose Level 151H, Calcium Level 9.1, Corrected Calcium 9.1, Total Bilirubin 0.9, Aspartate Amino Transf (AST/SGOT) 21, Alanine Aminotransferase (ALT/SGPT) 15, Alkaline Phosphatase 94, C-Reactive Protein High Sensitivity 0.77H, Total Protein 6.8, Albumin 4.0, Lipase 36 02/12/20 08:43: Urine Color YELLOW, Urine Clarity CLEAR, Urine pH 5.5, Urine Specific Willard >=1.030, Urine Protein TRACEH, Urine Glucose (UA) NEGATIVE, Urine Ketones 1+H, Urine Nitrite POSITIVEH, Urine Bilirubin NEGATIVE, Urine Urobilinogen 1.0, Urine Leukocyte Esterase NEGATIVE, Urine RBC (Auto) TRACE-I, Urine RBC 0-2, Urine WBC 5-10H, Urine Squamous Epithelial Cells 2-5, Urine Crystals PRESENTH, Urine Calcium Oxalate Crystals RAREH, Urine Bacteria LARGEH, Urine Casts NONE, Urine Mucus NEGATIVE, Urine Culture Indicated YES 02/12/20 14:25: Coronavirus (COVID-19)(PCR) Negative Assessment/Plan Assessment/Plan Assessment/Plan Incarcerated Inguinal hernia s/p laparoscopic hernia repair and small bowel resection POD#1 hernia repair/bowel resection. She tolerated the procedure well, has pain with movement but otherwise well controlled. Incisions are intact without s/s of infection. Encourage ambulation, continue clear liquids, adequate pain management, and monitor for return of bowel function. MICHAEL STARKS DO 02/13/20 1543: Subjective Time Seen by a Provider: 14:22 Subjective/Events-last exam Pt seen and examined, states she cannot eat anything because whatever she tries makes her nauseous. Able to take small sips of liquids. Her IV went subQ and had to be pulled. No flatus or BM. Denies pain except when she moves. Objective Exam General Appearance: No Apparent Distress, WD/WN Respiratory: Lungs Clear, Normal Breath Sounds, No Accessory Muscle Use, No Respiratory Distress Cardiovascular: Regular Rate, Rhythm, No Murmur Gastrointestinal: soft; No distended, No rebound; tenderness (mild tenderness epigastric-umbilical region) Assessment/Plan Assessment/Plan Assessment/Plan S/P Right Inguinal hernia repair and Partial small bowel resection Change meds to PO, encourage ambulation and IS use. Will try Zofran ODT and hopefully can get pt home tomorrow. Supervisory-Addendum Brief Verification & Attestation Participated in pt care: history, MDM, physical Personally performed: exam, history, MDM Care discussed with: Medical Student Procedures: n/a Verification and Attestation of Medical Student E/M Service A medical student performed and documented this service. I then reviewed and verified all information documented by the medical student and made modifications to such information, when appropriate. I personally performed a physical exam, medical decision making and then discussed any differences between the notes and made revisions as necessary to create one note. Michael Starks , 02/13/20 , 15:43 [place] [facility] MED STUDENT Feb 13, 2020 07:28 MICHAEL STARKS DO Feb 13, 2020 15:43
[2020-02-13 08:00] VITALS: BP 106/55
[2020-02-13] MEDS ORDERED: PANTOPRAZOLE 40 MG (PROTONIX) VIAL IVP SCH (09:00)
[2020-02-13 12:00] VITALS: BP 97/56
--- NOTE | 2020-02-13 14:17 | Anesthesia-General Post-Op ---
General Patient Condition Mental Status/LOC: Same as Preop Cardiovascular: Satisfactory Nausea/Vomiting: Absent Respiratory: Satisfactory Pain: Controlled Complications: Absent Post Op Complications Complications None Follow Up Care/Instructions Patient Instructions None needed. Anesthesia/Patient Condition Patient Condition Patient is doing well, no complaints, stable vital signs, no apparent adverse anesthesia problems. No complications reported per nursing. YUE SOLORZANO CRNA Feb 13, 2020 14:17
[2020-02-13 15:24] VITALS: BP 109/66
[2020-02-13] MEDS ORDERED: HYDROcodone/APAP 5 MG/325 MG (LORTAB) TAB PO PRN (15:45)
[2020-02-13] MEDS ORDERED: ENOXAPARIN 30 MG/0.3 ML (LOVENOX) SYR SC SCH (16:45)
[2020-02-13] MEDS: ONDANSETRON 4 MG (ZOFRAN) ORAL DISSOLVE TAB PO PRN (17:06)
[2020-02-13 19:04] VITALS: BP 121/69
[2020-02-13] MEDS: ENOXAPARIN 30 MG/0.3 ML (LOVENOX) SYR SC SCH (19:59)
--- NOTE | 2020-02-13 20:07 | NUR ---
Pt's IV infiltrated earlier today. I asked Dr Starks if I should place a new IV and he indicated it was not necessary, he changed her Zofran to oral. However, patient needs to increase her fluid intake otherwise she could possible need IVF again. PAtient aware and said she was working on increasing fluids.
[2020-02-14 00:22] VITALS: BP 102/64
[2020-02-14 03:06] VITALS: BP 146/71
[2020-02-14] MEDS: LACTATED RINGERS 1,000 ML IV SCH ×3 (03:26→20:28)
[2020-02-14] MEDS: ONDANSETRON 4 MG (ZOFRAN) ORAL DISSOLVE TAB PO PRN ×3 (03:45→20:35)
[2020-02-14] MEDS: ACETAMINOPHEN 500 MG TAB (TYLENOL) PO SCH ×3 (03:45→22:00)
--- NOTE | 2020-02-14 03:46 | NUR ---
pt requesting zofran-prn zofran administered for nausea
--- NOTE | 2020-02-14 04:30 | NUR ---
PT REFUSED BLADIMIR GRIGGS PT REPORTS ZOFRAN HAS RELIEVED THE NAUSEA
--- NOTE | 2020-02-14 07:29 | Progress Note - Surgery ---
TAS[facility] SPARR[facility] MED STUDENT 02/14/20 0729: Subjective Date Seen by a Provider: Feb 14, 2020 Time Seen by a Provider: 07:05 Subjective/Events-last exam Pt seen and examined. POD#2 s/p R inguinal hernia repair and bowel resection. She continues to have abd pain with movement/pressure but otherwise well controlled. She states that she has been feeling nauseated since yesterday but denies vomiting. She is tolerating small amounts of clear liquids. Denies passing flatus or BM(last BM on Tuesday) since her surgery. Denies chest pain/SOB. Ambulates to the bathroom to urinate, and says that she does experience pain/burning with urination. Review of Systems General: No Chills HEENT: No Head Aches Pulmonary: No Dyspnea, No Cough Cardiovascular: No: Chest Pain Gastrointestinal: Nausea, Abdominal Pain; No: Vomiting Genitourinary: Dysuria Objective Exam Vital Signs Date Time Temp Pulse Resp B/P (MAP) Pulse Ox O2 Delivery O2 Flow Rate FiO2 02/14/20 03:06 36.4 94 18 146/71 (96) 97 Room Air 02/14/20 00:22 36.6 92 16 102/64 (77) 94 Room Air 02/13/20 19:50 Room Air 02/13/20 19:04 36.2 84 16 121/69 (86) 97 Room Air 02/13/20 15:24 36.0 87 18 109/66 (80) 97 Room Air 02/13/20 12:29 35.7 02/13/20 12:00 35.7 90 20 97/56 (70) 93 Nasal Cannula 2.00 02/13/20 09:00 100 Nasal Cannula 2.00 91 02/13/20 08:00 35.8 90 20 106/55 (72) 100 Nasal Cannula 2.00 I & O 02/14/20 07:00 Intake Total 3865 ml Balance 3865 ml Capillary Refill : Less Than 3 SecondsLess Than 3 Seconds General Appearance: No Apparent Distress, WD/WN HEENT: PERRL/EOMI Neck: Full Range of Motion, Normal Inspection, Non Tender Respiratory: Lungs Clear, Normal Breath Sounds, No Accessory Muscle Use, No Respiratory Distress Cardiovascular: Regular Rate, Rhythm, No Murmur Gastrointestinal: soft; No distended, No rebound; tenderness (mild tenderness epigastric-umbilical region) Extremity: Normal Inspection, Normal Range of Motion, Non Tender Neurologic/Psychiatric: Alert, Oriented x3, No Motor/Sensory Deficits, Normal Mood/Affect Skin: Normal Color, Warm/Dry, Other (3x laparoscopic incision sites: LUQ, RUQ, umbilical. secured with dewey and overlying bandages. Umbilical incision is draining small amounts of sanguinous drainage. Incisions are well approximated without erythema.) Results Lab Microbiology 02/12/20 MRSA Screen - Final, Complete MRSA not isolated 02/12/20 Urine Culture - Preliminary, Resulted Escherichia coli Assessment/Plan Assessment/Plan Assessment/Plan S/P Right Inguinal hernia repair and Partial small bowel resection UTI Still no flatus; continue to encourage ambulation and PO intake. Encourage IS use. Continue to monitor VS/labs. Potential DC today MICHAEL ELKINS DO 02/14/20 1405: Subjective Time Seen by a Provider: 12:43 Subjective/Events-last exam Pt seen and examined, states pain is much better and she is walking a little. Still no flatus or BM and states she is "burping more". Unfortunately, still can't eat because of nausea. Review of Systems General: No Chills; Fatigue Pulmonary: No Dyspnea, No Cough Cardiovascular: No: Chest Pain Gastrointestinal: Nausea, Abdominal Pain (very mild and only when walking); No: Vomiting Objective Exam General Appearance: No Apparent Distress Respiratory: Lungs Clear, Normal Breath Sounds, No Accessory Muscle Use, No Respiratory Distress Cardiovascular: Regular Rate, Rhythm, No Murmur Gastrointestinal: soft; No distended, No rebound; tenderness (mild tenderness epigastric-umbilical region) Assessment/Plan Assessment/Plan Assessment/Plan S/P RIH repair and SBR UTI Will start ABX for UTI. Pt encouraged to ambulate more (at least 4-5 times per day). Pt told nausea should get better if she has flatus or BM. Will keep her one more day since the nausea is still causing her to not eat; don't want to send her home if she can't eat. Supervisory-Addendum Brief Verification & Attestation Participated in pt care: history, MDM, physical Personally performed: exam, history, MDM Care discussed with: Medical Student Procedures: n/a Verification and Attestation of Medical Student E/M Service A medical student performed and documented this service. I then reviewed and verified all information documented by the medical student and made modifications to such information, when appropriate. I personally performed a physical exam, medical decision making and then discussed any differences between the notes and made revisions as necessary to create one note. Michael Elkins , 02/14/20 , 14:05 [employer] [employer] MED STUDENT Feb 14, 2020 07:29 MICHAEL ELKINS DO Feb 14, 2020 14:05
[2020-02-14 07:40] VITALS: BP 119/71
[2020-02-14 11:15] VITALS: BP 128/74
--- NOTE | 2020-02-14 13:31 | NUR ---
CM/SS: Visited with pt as per plan for discharge Plan: Pt is from home and will likely return there when deemed appropriate Summary: Pt reports feeling better today except nausea and that she is from home. At the time of the visit pt had complained about being nausea. Pt does not have any services in home, and was living independently at home prior to the hospital stay. She does have two daughters that live in town that can help her if needed. 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 Pt does not have any questions at this time. This worker will follow up.
[2020-02-14 15:37] VITALS: BP 140/65
[2020-02-14] MEDS: TRIM/SULFAMETH 160/800 (SEPTRA DS) TAB PO SCH (18:03)
[2020-02-14] MEDS: ENOXAPARIN 30 MG/0.3 ML (LOVENOX) SYR SC SCH (18:04)
[2020-02-14 19:13] VITALS: BP 124/65
--- NOTE | 2020-02-14 20:00 | NUR ---
ASSUMED CARE FROM AMINA WELDON
[2020-02-15] VITALS: BP 124/61
[2020-02-15] MEDS: ONDANSETRON 4 MG (ZOFRAN) ORAL DISSOLVE TAB PO PRN ×3 (02:55→14:21)
[2020-02-15] MEDS: LACTATED RINGERS 1,000 ML IV SCH ×2 (02:56→11:45)
[2020-02-15 04:00] VITALS: BP 128/70
[2020-02-15] MEDS: ACETAMINOPHEN 500 MG TAB (TYLENOL) PO SCH ×3 (06:05→14:22)
[2020-02-15 07:34] VITALS: BP 117/56
[2020-02-15] MEDS: TRIM/SULFAMETH 160/800 (SEPTRA DS) TAB PO SCH (07:43)
[2020-02-15 11:40] VITALS: BP 131/61
[2020-02-15] MEDS ORDERED: ONDA4TAB11 PO (12:06)
--- NOTE | 2020-02-15 12:09 | Discharge Inst-Surgical ---
Discharge Inst-Surgical Depart Medication/Instructions New, Converted or Re-Newed RX: Transmitted to Pharmacy Patient Instructions Follow up Appt: Make appointment for 1 week. [phone] Instructions: No lifting greater than 20 pounds. No strenuous activity. May shower in 24 hours, no tub bath or soaking. Use incentive spirometer at home as directed. No Smoking Skin/Wound Care: You need to come to clinic to have dewey removed. Symptoms to Report: Appetite Changes, Extremity Discoloration, Numbness/Tingling, Swelling Increased, Bleeding Excessive, Eyesight Changes, Pain Increased, Urine Color Change, Constipation(Persistent), Fever over 101 degree F, Pain/Pressure in chest, Urinating Difficulty, Cough Up/Vomit Blood, Heart Beat Irreg/Pounding, Pain/Pressure in jaw, Cramps in feet or legs, Lightheadedness, Pain/Pressure in shoulder, Diarrhea(Persistent), Memory Changes Suddenly, Questions/Concerns, Weight gain consecutive days, Dizziness/Fainting, Nausea/Vomiting, Shortness of Breath, Weight gain over 2 pounds If questions or concerns contact your physician Or seek help at emergency department. Activity Activity as Tolerated: Yes Activity Instructions: Avoid Stress to Incision Driving Instructions: No Driving/Refer to Dr. Shaw Discharge Diet: No Restrictions Diet After 24 Hours: Clear Liquid if Nauseous If Any Problems/Questions/Issu: Contact Your Physician, Go to Emergency Room Skin/Wound Care Infection Signs and Symptoms: Increased Redness, Foul Odor of Wound, Increased Drainage, Skin Itchy or Has a Rash, Increased Swelling, Temperature Above 101 F Bathing Instructions: MICHAEL Blackwood DO Feb 15, 2020 12:08
--- NOTE | 2020-02-15 12:12 | NUR ---
CM/SS: Visit with pt as per discharge plan. Plan: Pt to return home with no identified services Summary: Pt reports her daughter will not be able to pick her up until 4pm. Pt reports some nausea and has requested the nurse be notified of this. AMINA Pozo is notified. Pt reports she is ready to go home. She prefers that her follow up appointments be on the same day and late morning or early afternoon. This worker will follow up on this when the appts. are scheduled. Pt thanks this worker for visiting.
--- NOTE | 2020-02-15 12:15 | Progress Note - Surgery ---
Subjective Time Seen by a Provider: 11:42 Subjective/Events-last exam Pt seen and examined, states she still has nausea but it is better. Pt has not had flatus or BM yet. She is able to eat a little more and would like to go home. Review of Systems General: No Chills, No Night Sweats; Fatigue Pulmonary: No Dyspnea, No Cough Gastrointestinal: Nausea; No: Vomiting, Abdominal Pain Objective Exam Vital Signs Date Time Temp Pulse Resp B/P (MAP) Pulse Ox O2 Delivery O2 Flow Rate FiO2 02/15/20 11:40 36.7 97 20 131/61 (84) 94 Room Air 02/15/20 07:34 36.7 95 20 117/56 (76) 93 Room Air 02/15/20 04:00 36.5 96 18 128/70 (89) 95 Room Air 02/15/20 00:00 36.8 100 18 124/61 (82) 94 Room Air 02/14/20 20:30 Room Air 02/14/20 19:13 36.6 101 18 124/65 (84) 95 Room Air 02/14/20 15:37 36.8 93 18 140/65 (90) 96 Room Air I & O 02/15/20 07:00 Intake Total 1400 ml Balance 1400 ml Capillary Refill : Less Than 3 SecondsLess Than 3 Seconds General Appearance: No Apparent Distress HEENT: PERRL/EOMI Respiratory: Lungs Clear, Normal Breath Sounds, No Accessory Muscle Use, No Re spiratory Distress Cardiovascular: Regular Rate, Rhythm, No Murmur Gastrointestinal: soft; No distended, No rebound; tenderness (mild tenderness epigastric-umbilical region with deep palpation) Neurologic/Psychiatric: Normal Mood/Affect Skin: Other (3x laparoscopic incision sites: LUQ, RUQ, umbilical. secured with dewey and overlying bandages. Umbilical incision is draining small amounts of sanguinous drainage. Incisions are well approximated without erythema.) Results Lab Microbiology 02/12/20 MRSA Screen - Final, Complete MRSA not isolated 02/12/20 Urine Culture - Final, Complete Escherichia coli Assessment/Plan Assessment/Plan Assessment/Plan S/P RIH repair and SBR UTI Will D/C pt home with Zofran for nausea and will continue Bactrim for UTI. Pt encouraged to ambulate more (at least 4-5 times per day). Pt told nausea should get better if she has flatus or BM. DELMAN,MICHAEL B DO Feb 15, 2020 12:15
[2020-02-15] MEDS ORDERED: Trimethoprim/Sulfamethoxazole PO (12:17)
--- NOTE | 2020-02-15 15:06 | NUR ---
"RD ASSESSMENT PMHx: hypercholesterolemia; s/p R inguinal hernia repair, and bowel resection. PT INTERACTION: Pt was awake and pleasant during nutrition assessment. Pt states current appetite is not good, and has been this way since admit. Note avg PO intake 38% x2meal, per chart review. Pt states following a regular diet at home, and has no issues with chewing/swallowing food. Pt states some recent issues with nausea and constipation, and that her last BM was 02/09. Note pt not currently on bowel regimen per chart review. Pt states no recent wt changes. Note unable to determine recent wt hx, per chart review. ABNORMAL NUTRITION-RELATED LAB VALUES LOW: HIGH: glu 151; Est. kcal needs: 6357-7181 kcal | 30-35 kcal/kg Est. Pro needs: 44-55 g Pro | 0.8-1.0 g Pro/kg PES STATEMENT: Inadequate oral intake (NI-2.1) related to loss of appetite, nausea, and constipation, as evidenced by pt interview, and avg PO intake 38% x2meal. INTERVENTION: Continue with current diet order of Clear Liquid diet. Pt may benefit from diet advancement, as medically able and as tolerated. Add Ensure Clear to meals TID, for increased kcal intake. Provides 250 kcal and 8 g Pro per serving. Encouraged pt to eat when able. Will continue to follow and reassess as pt needs, intake, and status change. Shanda ADAIR, MS RD LD [phone] cell"
[2020-02-15 16:20] VITALS: BP 131/61
--- NOTE | 2020-02-15 16:20 | NUR ---
MONIKA SINGER demonstrates understanding of discharge instructions and accurately returns instructions upon questioning. Copy of Post-Discharge Instructions given to PT. MONIKA SINGER is able to manage continuing needs after discharge. Patients belongings returned to PT. Patient discharged from [facility] on 02/15/20 at 1620. MONIKA SINGER left floor via W/C, accompanied by STAFF AND FAMILY PER AUTO.
== END 2020-02-15 16:20 | disposition home or self-care (01) | DRG 330 ==
LOC: EDUNIT# 08:20 → ER 08:21 → SDC 12:33 → 4TH 16:34
PROVIDERS: ADMIT Surgery; ATTEND Surgery
PROC: 0DB80ZZ Excision of Small Intestine, Open Approach (ICD-10-PCS; 2020-02-12)
PROC: 0YU54JZ Supplement Right Inguinal Region with Synthetic Substitute, Percutaneous Endoscopic Approach (ICD-10-PCS; principal; 2020-02-12 14:16)
DX: K40.30 Unilateral inguinal hernia, with obstruction, without gangrene, not specified as recurrent (principal); K55.9 Vascular disorder of intestine, unspecified; N39.0 Urinary tract infection, site not specified
CPT/HCPCS: 36415; 74022; 74177; 80053; 81000; 83690; 85025; 86141; 87077; 87081; 87088; 87186; 87635

== ENCOUNTER 2020-03-09 09:43 | Inpatient (IN) | payer MEDICARE ==
[~2020-03-09] VITALS: Ht 162.6 cm; Wt 53.6 kg
[~2020-03-09 09:43] MED LIST changes: +ALPR0.254 PO; +ATOR10TA66 PO; -CATHETER FLUSH 10 ML SYR IV PRN; -IOHEXOL 350 MG/ML 100 ML (OMNIPAQUE 350) VIAL IV ONE; -NS 250 ML (IVPB) BAG IV ONE; +ONDA4TAB11 PO; +SERT25TA5 PO; +Trimethoprim/Sulfamethoxazole PO
[2020-03-09] MEDS ORDERED: ONDANSETRON 4 MG/2 ML (SDV) Z0FRAN IVP ONE (10:00)
[2020-03-09] MEDS ORDERED: NS IV 1000 ML 1,000 ML IV SCH (10:00)
--- NOTE | 2020-03-09 10:01 | ED Abdominal Pain ---
General Stated Complaint: HERNIA SURGERY:ABD PAIN Source of Information: Patient Exam Limitations: No Limitations History of Present Illness Date Seen by Provider: Mar 09, 2020 Time Seen by Provider: 09:36 Initial Comments The patient presents to the ER by private conveyance from home with chief complaint that today she is having progressively worsening pain in her right lower quadrant abdomen. February 10 Dr. Araujo took her to surgery for a bowel obstruction related to a hernia. He resected a small amount of bowel. She was healing and doing better but then starting to get worse with pain. She has been able to pass small amounts of bowel but she says she also has poor appetite. She has been drinking well. She is having mild nausea and rates her pain as a 4 out of 10 while at rest presently. She has had a hysterectomy. She is having no dysuria and a couple weeks ago Dr. Prasad her primary care provider did a urinalysis which was unremarkable. She did have a UTI about a month or 2 ago. She is not having any fevers chills cough shortness of air or sick contacts. Allergies and Home Medications Allergies Coded Allergies: No Allergy Information Available (Unverified , 02/12/20) Home Medications ALPRAZolam 0.25 Mg Tablet, 0.25 MG PO BID PRN for ANXIETY, (Reported) Atorvastatin Calcium 10 Mg Tablet, 10 MG PO DAILY, (Reported) Ondansetron 4 Mg Tab.rapdis, 8 MG PO Q8H PRN for NAUSEA/VOMITING-1ST LINE Prescribed by: MICHAEL ELKINS on 02/15/20 1206 Sertraline HCl 25 Mg Tablet, 25 MG PO DAILY, (Reported) [Trimethoprim/Sulfamethoxazole] 1 EA TAB, 1 EA PO BID WITH MEALS Prescribed by: MICHAEL ELKINS on 02/15/20 1217 Patient Home Medication List Home Medication List Reviewed: Yes Review of Systems Review of Systems Constitutional: No chills, No diaphoresis EENTM: No Blurred Vision, No Double Vision Respiratory: Denies Cough, Denies Shortness of Air Cardiovascular: Denies Chest Pain, Denies Lightheadedness Gastrointestinal: See HPI, Abdominal Pain; Denies Constipated, Denies Diarrhea; Nausea, Poor Appetite; Denies Poor Fluid Intake; Vomiting Genitourinary: Denies Burning, Denies Discharge Musculoskeletal: No back pain, No joint pain Skin: change in color (Right lower quadrant is erythematous) Psychiatric/Neurological: Denies Anxiety, Denies Depressed All Other Systems Reviewed Negative Unless Noted: Yes Past Jiutccj-Wbvjbm-Tjsrwc Hx Patient Social History Alcohol Use: Denies Use Recreational Drug Use: No Smoking Status: Never a Smoker Recent Foreign Travel: No Contact w/Someone Who Travel: No Recent Hopitalizations: No Immunizations Up To Date Date of Influenza Vaccine: Dec 13, 2019 Seasonal Allergies Seasonal Allergies: Yes Past Medical History Surgeries: Yes (right knee scope) Hysterectomy, Orthopedic Respiratory: No Cardiac: Yes High Cholesterol Neurological: No Genitourinary: No Gastrointestinal: No Musculoskeletal: No Endocrine: No HEENT: No Loss of Vision: Denies Hearing Impairment: Denies Cancer: No Psychosocial: Yes Anxiety Integumentary: No Family Medical History Hypertension, Stroke Physical Exam Vital Signs Vital Signs - First Documented 03/09/20 09:49 Temp 36.6 Pulse 105 Resp 20 B/P (MAP) 142/70 (94) O2 Delivery Room Air Capillary Refill : Height/Weight/BMI Height: '" Weight: lbs. oz. kg; 21.28 BMI Method: General Appearance: WD/WN, moderate distress HEENT: PERRL/EOMI, pharynx normal Neck: full range of motion, normal inspection Respiratory: lungs clear, normal breath sounds, no respiratory distress, no accessory muscle use Cardiovascular: normal peripheral pulses, regular rate, rhythm Peripheral Pulses: 2+ Radial Pulses (R), 2+ Radial Pulses (L) Gastrointestinal: normal bowel sounds (Hypoactive), tenderness (Erythematous and indurated on the right lower quadrant near the inguinal canal with palpable mass soft, and mobile.) Extremities: normal range of motion, normal inspection, normal capillary refill Neurologic/Psychiatric: alert, normal mood/affect, oriented x 3 Focused Exam Sepsis Stage: Sepsis Possible Source: Skin/Soft Tissue Lactate Level 03/09/20 11:17: Lactic Acid Level 1.84 Time of Focused Exam: 12:02 Respiratory: Lungs Clear, Normal Breath Sounds, No Accessory Muscle Use, No Respiratory Distress Cardiovascular: Regular Rate, Rhythm, No Edema, Normal Peripheral Pulses Capillary Refill: Less Than 3 Seconds Peripheral Pulses: 2+ Radial Pulses (R), 2+ Radial Pulses (L) Skin: warm/dry, other (Erythematous, indurated area of cellulitic appearing tissue over the right inguinal) Lactic Acid Level Laboratory Tests Test 03/09/20 11:17 Lactic Acid Level 1.84 MMOL/L (0.50-2.00) Within 3hrs of presentation: Admin fluids, Admin ABX, Blood cultures prior to ABX's, Focus exam, Lactate level Progress/Results/Core Measures Results/Orders Lab Results Laboratory Tests Test 03/09/20 09:58 03/09/20 11:04 03/09/20 11:17 Range/Units White Blood Count 19.1 H 4.3-11.0 10^3/uL Red Blood Count 3.90 3.80-5.11 10^6/uL Hemoglobin 12.7 11.5-16.0 g/dL Hematocrit 39 35-52 % Mean Corpuscular Volume 99 80-99 fL Mean Corpuscular Hemoglobin 33 25-34 pg Mean Corpuscular Hemoglobin Concent 33 32-36 g/dL Red Cell Distribution Width 13.2 10.0-14.5 % Platelet Count 233 130-400 10^3/uL Mean Platelet Volume 9.5 9.0-12.2 fL Immature Granulocyte % (Auto) 0 % Neutrophils (%) (Auto) 84 H 42-75 % Lymphocytes (%) (Auto) 7 L 12-44 % Monocytes (%) (Auto) 9 0-12 % Eosinophils (%) (Auto) 0 0-10 % Basophils (%) (Auto) 0 0-10 % Neutrophils # (Auto) 16.0 H 1.8-7.8 10^3/uL Lymphocytes # (Auto) 1.3 1.0-4.0 10^3/uL Monocytes # (Auto) 1.6 H 0.0-1.0 10^3/uL Eosinophils # (Auto) 0.0 0.0-0.3 10^3/uL Basophils # (Auto) 0.1 0.0-0.1 10^3/uL Immature Granulocyte # (Auto) 0.1 0.0-0.1 10^3/uL Neutrophils % (Manual) 78 % Lymphocytes % (Manual) 9 % Monocytes % (Manual) 7 % Eosinophils % (Manual) 0 % Basophils % (Manual) 0 % Band Neutrophils 6 % Elliptocytes SLIGHT Prothrombin Time 13.6 12.2-14.7 SEC INR Comment 1.0 0.8-1.4 Activated Partial Thromboplast Time 31 24-35 SEC Sodium Level 137 135-145 MMOL/L Potassium Level 4.3 3.6-5.0 MMOL/L Chloride Level 103 98-107 MMOL/L Carbon Dioxide Level 25 21-32 MMOL/L Anion Gap 9 5-14 MMOL/L Blood Urea Nitrogen 18 7-18 MG/DL Creatinine 0.88 0.60-1.30 MG/DL Estimat Glomerular Filtration Rate > 60 BUN/Creatinine Ratio 20 Glucose Level 139 H 70-105 MG/DL Calcium Level 9.3 8.5-10.1 MG/DL Corrected Calcium 9.5 8.5-10.1 MG/DL Magnesium Level 1.9 1.6-2.4 MG/DL Total Bilirubin 0.9 0.1-1.0 MG/DL Aspartate Amino Transf (AST/SGOT) 19 5-34 U/L Alanine Aminotransferase (ALT/SGPT) 13 0-55 U/L Alkaline Phosphatase 91 40-136 U/L Total Protein 6.9 6.4-8.2 GM/DL Albumin 3.7 3.2-4.5 GM/DL Lipase 12 8-78 U/L Urine Color YELLOW Urine Clarity CLEAR Urine pH 8.0 5-9 Urine Specific Newton 1.010 L 1.016-1.022 Urine Protein NEGATIVE NEGATIVE Urine Glucose (UA) NEGATIVE NEGATIVE Urine Ketones NEGATIVE NEGATIVE Urine Nitrite POSITIVE H NEGATIVE Urine Bilirubin NEGATIVE NEGATIVE Urine Urobilinogen 0.2 < = 1.0 MG/DL Urine Leukocyte Esterase NEGATIVE NEGATIVE Urine RBC (Auto) NEGATIVE NEGATIVE Urine RBC NONE /HPF Urine WBC 2-5 /HPF Urine Squamous Epithelial Cells 0-2 /HPF Urine Crystals NONE /LPF Urine Bacteria MODERATE H /HPF Urine Casts NONE /LPF Urine Mucus NEGATIVE /LPF Urine Culture Indicated CULTURE PENDING Lactic Acid Level 1.84 0.50-2.00 MMOL/L My Orders Orders - ANANDA MIN Ed Iv/Invasive Line Start (03/09/20 09:53) Ns Iv 1000 Ml (Sodium Chloride 0.9%) (03/09/20 10:00) Ct Abdomen/Pelvis W (03/09/20 09:53) Ondansetron Injection (Zofran Injectio (03/09/20 10:00) Cbc With Automated Diff (03/09/20 09:53) Comprehensive Metabolic Panel (03/09/20 09:53) Ua Culture If Indicated (03/09/20 09:53) Lipase (03/09/20 09:53) Magnesium (03/09/20 09:53) Manual Differential (03/09/20 09:58) Iohexol Injection (Omnipaque 350 Mg/Ml 1 (03/09/20 10:15) Received Contrast (Hold Metformin- Contr (03/09/20 10:15) Ns (Ivpb) (Sodium Chloride 0.9% Ivpb Bag (03/09/20 10:15) Blood Culture (03/09/20 10:48) Urine Culture (03/09/20 10:48) Protime With Inr (03/09/20 10:48) Partial Thromboplastin Time (03/09/20 10:48) Chest 1 View, Ap/Pa Only (03/09/20 10:48) Ed Iv/Invasive Line Start (03/09/20 10:48) Ed Iv/Invasive Line Start (03/09/20 10:48) Vital Signs Adult Sepsis Patie Q15M (03/09/20 10:48) O2 (03/09/20 10:48) Remove Rings In Anticipation O (03/09/20 10:48) Lactic Acid Analyzer (03/09/20 10:48) Lactated Ringers (Lr 1000 Ml Iv Solution (03/09/20 11:00) Ceftriaxone For Iv Use (Rocephin For I (03/09/20 11:00) Metronidazole 500mg/100ml Ivpb (Flagyl 5 (03/09/20 11:00) Fentanyl Injection (Sublimaze Injection (03/09/20 11:34) Medications Given in ED Current Medications Medications Dose Ordered Sig/Rohan Route Start Time Stop Time Status Last Admin Dose Admin Ceftriaxone Sodium 1000 mg/ Sterile Water 10 ml @ 200 mls/hr ONCE ONCE IV 03/09/20 11:00 03/09/20 11:02 DC 03/09/20 11:34 200 MLS/HR Fentanyl Citrate 100 mcg STK-MED ONCE .ROUTE 03/09/20 11:34 03/09/20 11:37 DC 03/09/20 11:39 50 MCG Iohexol 100 ml ONCE ONCE IV 03/09/20 10:15 03/09/20 10:16 DC 03/09/20 10:38 70 ML Metronidazole 100 ml @ 100 mls/hr ONCE ONCE IV 03/09/20 11:00 03/09/20 11:59 03/09/20 11:34 100 MLS/HR Ondansetron HCl 4 mg ONCE ONCE IVP 03/09/20 10:00 03/09/20 10:02 DC 03/09/20 10:03 4 MG Sodium Chloride 100 ml ONCE ONCE IV 03/09/20 10:15 03/09/20 10:16 DC 03/09/20 10:38 80 ML Vital Signs/I&O 03/09/20 09:49 Temp 36.6 Pulse 105 Resp 20 B/P (MAP) 142/70 (94) O2 Delivery Room Air Progress Progress Note : Time: 10:00 Progress Note High suspicion for adhesions and/or bowel obstruction again. The inflammatory changes in her skin are concerning. Were going to get labs urinalysis and a CT of her abdomen and pelvis. Give her a liter of fluids for her mild tachycardia of 105. If she has a significant elevated white count that would be reasonable to check blood cultures and cover with antibiotics. Diagnostic Imaging Diagonstic Imaging: CT (With IV contrast) Plain Films/CT/US/NM/MRI: abdomen, pelvis Comments NAME: MONIKA SINGER [facility] REC#: [id number] PT STATUS: REG ER : 1935 PHYSICIAN: ANANDA MIN MD ADMIT DATE: 03/09/20/ER Signed Date of Exam:03/09/20 CT ABDOMEN/PELVIS W PROCEDURE: CT abdomen and pelvis with contrast. TECHNIQUE: Multiple contiguous axial images were obtained through the abdomen and pelvis after administration of intravenous contrast. Auto Exposure Controls were utilized during the CT exam to meet ALARA standards for radiation dose reduction. All CT scans use one or more of the following dose optimizing techniques: automated exposure control, MA and/or KvP adjustment based on patient size and exam type or iterative reconstruction. INDICATION: Hysterectomy and hernia repair of 02/13/2020 now complaining of right lower quadrant pain. Compared with CT abdomen and pelvis 02/12/2020. The appendix is visualized and normal in caliber and showed no periappendiceal edema, stone or features suggestive of acute appendicitis. There is right lower quadrant extensive regional subcutaneous edema with skin thickening as well as some thickening of the inferior lower right abdominal wall. No full-thickness wall defect or viscus herniation. No drainable fluid collection or abscess. No soft tissue gas. This colonic constipation without focal impaction or bowel obstruction. Liver, gallbladder, bile ducts, spleen, adrenals and pancreas all unremarkable. There is nonobstructing nephrolithiasis on the left. No hydroureteronephrosis. The atherosclerotic aorta is patent and normal in caliber. Urinary bladder unremarkable. There is noninflamed diverticulosis. IMPRESSION: 1. Right lower quadrant subcutaneous edema and body wall thickening, cellulitis could not be excluded. There was however no abscess, hematoma or drainable fluid collection. 2. Unobstructed urinary tracts with normal appendix, nonobstructing left renal calculus noted. 3. Mild constipation without impaction or obstruction. Dictated by: Dictated on workstation # [id number] Dict: 03/09/20 1048 Trans: 03/09/20 1136 CVB [id number] Interpreted by: DEMETRIA RIZO Electronically signed by: DEMETRIA RIZO 03/09/20 113 Reviewed: Reviewed by [place] Diagonstic Imaging: Xray Plain Films/CT/US/NM/MRI: chest Comments [facility], [facility]. [place], [place] NAME: MONIKA SINGER [facility] REC#: [id number] PT STATUS: REG ER : 1935 PHYSICIAN: ANANDA MIN MD ADMIT DATE: 03/09/20/ER Signed Date of Exam:03/09/20 CHEST 1 VIEW, AP/PA ONLY INDICATION: Sepsis. COMPARISON: February 12, 2020. TECHNIQUE: Single radiograph of the chest dated March 09, 2020. FINDINGS: The cardiac silhouette is upper limits of normal in size. No significant pulmonary vascular congestion. Biapical pleural parenchymal scarring. Lungs are otherwise clear. No pleural effusion. Small hiatal hernia. No pneumothorax. No acute osseous abnormality. IMPRESSION: No acute cardiopulmonary abnormality with small hiatal hernia present. Dictated by: Dictated on workstation # [id number] Dict: 03/09/20 1108 Trans: 03/09/20 1138 AIG [id number] Interpreted by: SAFIA WARNER MD Electronically signed by: SAFIA WARNER MD 03/09/20 1138 Reviewed: Reviewed by Me Departure Communication (Admissions) Time/Spoke to Admitting Phy: 12:00 Discussed the case with Dr. Walton, general surgery and he agrees to admit with consultation to medicine for antibiotic selection and UTI management. Regular diet and pain control. Time/Spoke to Consulting Phy: 12:00 Discussed the case with Dr. Escamilla and she agrees to give medicine consult. She agrees with [facility] to cover cellulitis and UTI. Impression Primary Impression: Cellulitis Qualified Codes: L03.115 - Cellulitis of right lower limb Additional Impressions: UTI (urinary tract infection) Qualified Codes: N30.00 - Acute cystitis without hematuria Sepsis Qualified Codes: A41.9 - Sepsis, unspecified organism Disposition: 01 HOME, SELF-CARE Condition: Stable Admissions Decision to Admit Reason: Admit from ER (General) Decision to Admit/Date: Mar 09, 2020 Time/Decision to Admit Time: 11:44 Departure-Patient Inst. Referrals: ADONIS PRASAD DO (PCP/Family) Primary Care Physician ANANDA MIN Mar 09, 2020 10:01
[2020-03-09 10:05] LABS: BASOPHILS # (AUTO) 0.1 10^3/uL (0.0-0.1); BASOPHILS % (AUTO) 0 % (0-10); EOSINOPHILS % (AUTO) 0 % (0-10); HEMATOCRIT 39 % (35-52); HEMOGLOBIN 12.7 g/dL (11.5-16.0); LYMPHOCYTES # (AUTO) 1.3 10^3/uL (1.0-4.0); LYMPHOCYTES % (AUTO) 7 % (12-44); MEAN CORPUSCULAR HEMOGLOBIN 33 pg (25-34); MEAN CORPUSCULAR HGB CONC 33 g/dL (32-36); MEAN CORPUSCULAR VOLUME 99 fL (80-99); MEAN PLATELET VOLUME 9.5 fL (9.0-12.2); MONOCYTES # (AUTO) 1.6 10^3/uL (0.0-1.0); MONOCYTES % (AUTO) 9 % (0-12); NEUTROPHILS % (AUTO) 84 % (42-75); PLATELET COUNT 233 10^3/uL (130-400); WHITE BLOOD COUNT 19.1 10^3/uL (4.3-11.0)
[2020-03-09 10:15] LABS: ALBUMIN 3.7 GM/DL (3.2-4.5); CHLORIDE 103 MMOL/L (98-107); POTASSIUM 4.3 MMOL/L (3.6-5.0); SODIUM 137 MMOL/L (135-145)
[2020-03-09] MEDS ORDERED: HOLD METFORMIN - RECEIVED CONTRAST 20 ML VIAL IV SCH (10:15)
[2020-03-09] MEDS ORDERED: IOHEXOL 350 MG/ML 100 ML (OMNIPAQUE 350) VIAL IV ONE (10:15)
[2020-03-09] MEDS ORDERED: NS 100 ML (IVPB) BAG IV ONE (10:15)
[2020-03-09 10:17] LABS: CALCIUM 9.3 MG/DL (8.5-10.1)
[2020-03-09 10:18] LABS: GLUCOSE 139 MG/DL (70-105); TOTAL PROTEIN 6.9 GM/DL (6.4-8.2)
[2020-03-09 10:19] LABS: CARBON DIOXIDE 25 MMOL/L (21-32)
[2020-03-09 10:20] LABS: BILIRUBIN,TOTAL 0.9 MG/DL (0.1-1.0)
[2020-03-09 10:21] LABS: ALKALINE PHOSPHATASE 91 U/L (40-136); CREATININE SERUM 0.88 MG/DL (0.60-1.30); GFR ESTIMATED > 60
[2020-03-09 10:22] LABS: BUN/CREATININE RATIO 20
[2020-03-09 10:24] LABS: ALANINE AMINOTRANSFERASE 13 U/L (0-55)
[2020-03-09 10:25] LABS: MAGNESIUM 1.9 MG/DL (1.6-2.4)
[2020-03-09 10:26] LABS: LIPASE 12 U/L (8-78)
[2020-03-09 10:33] LABS: BAND NEUTROPHILS 6 %; BASOPHILS % (MANUAL) 0 %; ELLIPT/OVALOCYTES SLIGHT; EOSINOPHILS % (MANUAL) 0 %; LYMPHOCYTES % (MANUAL) 9 %; MONOCYTES % (MANUAL) 7 %; NEUTROPHILS % (MANUAL) 78 %
--- NOTE | 2020-03-09 10:33 | NUR ---
PT IN CT AT THIS TIME.
[2020-03-09] MEDS ORDERED: metroNIDAZOLE 500MG/100ML IVPB 100 ML IV ONE (11:00)
[2020-03-09] MEDS ORDERED: LACTATED RINGERS 1,000 ML IV ONE (11:00)
[2020-03-09] MEDS ORDERED: cefTRIAXone FOR IV USE 1,000 MG in WATER (STERILE) FOR INJECTION 10 ML IV ONE (11:00)
[2020-03-09 11:10] LABS: PROTHROMBIN TIME PATIENT 13.6 SEC (12.2-14.7)
--- NOTE | 2020-03-09 11:14 | Diagnostic Imaging Report ---
INDICATION: Sepsis. COMPARISON: February 12, 2020. TECHNIQUE: Single radiograph of the chest dated March 09, 2020. FINDINGS: The cardiac silhouette is upper limits of normal in size. No significant pulmonary vascular congestion. Biapical pleural parenchymal scarring. Lungs are otherwise clear. No pleural effusion. Small hiatal hernia. No pneumothorax. No acute osseous abnormality. IMPRESSION: No acute cardiopulmonary abnormality with small hiatal hernia present. Dictated by: Dictated on workstation # [id number]
[2020-03-09 11:16] LABS: BILIRUBIN,URINE NEGATIVE (NEGATIVE); CLARITY,URINE CLEAR; COLOR,URINE YELLOW; GLUCOSE, URINE (UA) NEGATIVE (NEGATIVE); KETONES,URINE NEGATIVE (NEGATIVE); LEUKOCYTE ESTERASE ,URINE NEGATIVE (NEGATIVE); NITRITE,URINE POSITIVE (NEGATIVE); PROTEIN,URINE NEGATIVE (NEGATIVE)
[2020-03-09 11:26] LABS: BACTERIA,URINE MODERATE /HPF; SQUAMOUS EPITHELIAL CELL,UR 0-2 /HPF
--- NOTE | 2020-03-09 11:30 | Diagnostic Imaging Report ---
PROCEDURE: CT abdomen and pelvis with contrast. TECHNIQUE: Multiple contiguous axial images were obtained through the abdomen and pelvis after administration of intravenous contrast. Auto Exposure Controls were utilized during the CT exam to meet ALARA standards for radiation dose reduction. All CT scans use one or more of the following dose optimizing techniques: automated exposure control, MA and/or KvP adjustment based on patient size and exam type or iterative reconstruction. INDICATION: Hysterectomy and hernia repair of 02/13/2020 now complaining of right lower quadrant pain. Compared with CT abdomen and pelvis 02/12/2020. The appendix is visualized and normal in caliber and showed no periappendiceal edema, stone or features suggestive of acute appendicitis. There is right lower quadrant extensive regional subcutaneous edema with skin thickening as well as some thickening of the inferior lower right abdominal wall. No full-thickness wall defect or viscus herniation. No drainable fluid collection or abscess. No soft tissue gas. This colonic constipation without focal impaction or bowel obstruction. Liver, gallbladder, bile ducts, spleen, adrenals and pancreas all unremarkable. There is nonobstructing nephrolithiasis on the left. No hydroureteronephrosis. The atherosclerotic aorta is patent and normal in caliber. Urinary bladder unremarkable. There is noninflamed diverticulosis. IMPRESSION: 1. Right lower quadrant subcutaneous edema and body wall thickening, cellulitis could not be excluded. There was however no abscess, hematoma or drainable fluid collection. 2. Unobstructed urinary tracts with normal appendix, nonobstructing left renal calculus noted. 3. Mild constipation without impaction or obstruction. Dictated by: Dictated on workstation # [id number]
[2020-03-09] MEDS ORDERED: fentaNYL INJECTION 100 MCG/2 ML AMP ONE (11:34)
[2020-03-09] MEDS ORDERED: ACETAMINOPHEN 325 MG TABLET PO PRN (13:15)
[2020-03-09 13:26] VITALS: BP 151/76
[2020-03-09] MEDS: LACTATED RINGERS 1,000 ML IV SCH ×2 (13:42→20:14)
[2020-03-09] MEDS: fentaNYL INJECTION 100 MCG/2 ML AMP IV PRN ×3 (13:58→21:51)
[2020-03-09] MEDS ORDERED: ALPRAZolam 1 MG (XANAX) TAB PO PRN ×2 (14:30→18:00)
[2020-03-09 15:25] VITALS: BP 151/76
[2020-03-09 16:00] VITALS: BP 101/68
[2020-03-09] MEDS: HYDROcodone/APAP 5 MG/325 MG (LORTAB) TAB PO PRN (16:59)
--- NOTE | 2020-03-09 17:43 | HISTORY AND PHYSICAL ---
DATE OF SERVICE: ATTENDING PRIMARY CARE PHYSICIAN: Fabian River DO. HISTORY OF PRESENT ILLNESS: The patient is an 84-year-old female, who was found to have a symptomatic right inguinal hernia. She underwent a small bowel resection laparoscopically and then repair of the right inguinal hernia with mesh by open technique on 02/10. She presented to the emergency department with pain within the right inguinal region as well as some slight redness. She states that she is having bowel function; however, her appetite has been poor. She does not report any fever nor chills at home. She also does report having a urinary tract infection approximately two days ago. Upon examination, she was found to have redness and erythema overlying the previous incision site. There is no fluctuance to indicate any abscess and this was confirmed by CT scan with only edema within the subcutaneous tissue and an intact previous hernia repair. PAST MEDICAL HISTORY: Anxiety and hypercholesterolemia. PAST SURGICAL HISTORY: Hysterectomy, right knee arthroscopy, small bowel resection and open right inguinal hernia repair with mesh. ALLERGIES: No known drug allergies. MEDICATIONS: Alprazolam 0.25 mg b.i.d. p.r.n., atorvastatin 10 mg daily, Zofran 4 mg p.r.n. and sertraline 25 mg daily. SOCIAL HISTORY: Negative smoke and negative alcohol. FAMILY HISTORY: Noncontributory. REVIEW OF SYSTEMS: A well-nourished female, currently in no acute distress. She is not experiencing any shortness of breath or difficulty breathing. No chest pain, palpitations or diaphoresis. Mild anorexia as well as mild nausea after eating meals. No vomiting. She is having normal bowel function. No cough or sputum production. No fever, chills and no recent inadvertent weight loss. All other review of systems negative. PHYSICAL EXAMINATION: VITAL SIGNS: Temperature 36.6, pulse 105, respirations 20, blood pressure 142/70 and pulse ox 97% on room air. CHEST: Good breath sounds bilaterally. HEART: Regular and no murmurs. EXTREMITIES: No lower extremity edema and negative Homans sign. HEENT: No scleral icterus or cervical lymphadenopathy. ABDOMEN: Soft. There is some overlying redness and erythema along the right inguinal region with no fluctuance to indicate any abscess. There is mild pain upon palpation. LABORATORY DATA: WBC 19.1, hemoglobin 12.7, hematocrit 39, platelets 233, BUN 18 and creatinine 0.88. ASSESSMENT AND PLAN: An 84-year-old female with a cellulitis in the right inguinal region from previous small bowel resection as well as an open right inguinal hernia repair with mesh. We will proceed with conservative therapy and proceed with diet as well as IV antibiotics and close monitoring for any changes including the formation of an abscess. Job ID: [id number] DocumentID: [id number] Dictated Date: 03/09/2020 17:16:17 [employer] Worker Date: 03/09/2020 17:42:33 Dictated By: CARLOS WALKER MD MTDD
[2020-03-09 19:53] VITALS: BP 115/65
[2020-03-09] MEDS ORDERED: metroNIDAZOLE 500MG/100ML IVPB 100 ML IV SCH (21:00)
[2020-03-09] MEDS ORDERED: ALPRAZolam 0.25 MG (XANAX) TAB ONE (21:41)
[2020-03-09] MEDS: ALPRAZolam 0.25 MG (XANAX) TAB PO PRN (21:50)
[2020-03-09 23:52] VITALS: BP 103/68
[2020-03-10] VITALS (17 sets, daily range): BP systolic 21–134; BP diastolic 19–83
[2020-03-10] MEDS: fentaNYL INJECTION 100 MCG/2 ML AMP IV PRN ×3 (00:38→22:22)
[2020-03-10] MEDS: ONDANSETRON 4 MG/2 ML (SDV) Z0FRAN IV PRN ×2 (03:14→09:02)
[2020-03-10] MEDS: ALPRAZolam 0.25 MG (XANAX) TAB PO PRN (03:14)
[2020-03-10] MEDS: HYDROcodone/APAP 5 MG/325 MG (LORTAB) TAB PO PRN ×2 (03:39→10:09)
[2020-03-10] MEDS: LACTATED RINGERS 1,000 ML IV SCH ×3 (04:26→18:12)
[2020-03-10 07:42] LABS: ALBUMIN 2.6 GM/DL (3.2-4.5)
[2020-03-10 07:43] LABS: CALCIUM 8.5 MG/DL (8.5-10.1)
[2020-03-10 07:44] LABS: TOTAL PROTEIN 5.1 GM/DL (6.4-8.2)
[2020-03-10 07:46] LABS: BILIRUBIN,TOTAL 0.6 MG/DL (0.1-1.0)
[2020-03-10 07:48] LABS: CREATININE SERUM 1.06 MG/DL (0.60-1.30)
[2020-03-10 08:27] LABS: BASOPHILS # (AUTO) 0.4 10^3/uL (0.0-0.1); BASOPHILS % (AUTO) 1 % (0-10); EOSINOPHILS # (AUTO) 0.3 10^3/uL (0.0-0.3); EOSINOPHILS % (AUTO) 1 % (0-10); HEMATOCRIT 50 % (35-52); HEMOGLOBIN 16.4 g/dL (11.5-16.0); LYMPHOCYTES # (AUTO) 3.7 10^3/uL (1.0-4.0); LYMPHOCYTES % (AUTO) 9 % (12-44); MEAN CORPUSCULAR HEMOGLOBIN 32 pg (25-34); MEAN CORPUSCULAR HGB CONC 33 g/dL (32-36); MEAN CORPUSCULAR VOLUME 98 fL (80-99); MEAN PLATELET VOLUME 10.4 fL (9.0-12.2); MONOCYTES # (AUTO) 3.5 10^3/uL (0.0-1.0); MONOCYTES % (AUTO) 9 % (0-12); NEUTROPHILS % (AUTO) 74 % (42-75); PLATELET COUNT 136 10^3/uL (130-400)
[2020-03-10 08:36] LABS: WHITE BLOOD COUNT 40.4 10^3/uL (4.3-11.0)
[2020-03-10] MEDS ORDERED: PIPERACILLIN/TAZOBACTAM (BULK) 4.5 GM in NS (IVPB) 100 ML IV NR (09:00)
[2020-03-10] MEDS ORDERED: PANTOPRAZOLE 40 MG (PROTONIX) VIAL IV SCH (09:00)
[2020-03-10] MEDS ORDERED: VANCOMYCIN INJECTION 0.1 MG in NS (IVPB) 250 ML IV SCH (09:00)
[2020-03-10] MEDS ORDERED: FURO20TA4 PO (09:10)
[2020-03-10] MEDS ORDERED: ACET-2267 PO (09:10)
[2020-03-10] MEDS ORDERED: NAPR220C11 PO (09:10)
[2020-03-10] MEDS ORDERED: MULT-1136 PO (09:10)
[2020-03-10] MEDS ORDERED: ONDA4TAB11 PO (09:10)
[2020-03-10] MEDS ORDERED: DOCU100T7 PO (09:10)
[2020-03-10] MEDS ORDERED: CETI10TA49 PO (09:10)
[2020-03-10] MEDS ORDERED: VANCOMYCIN 1 GM/NS 250 ML IVPB IV NR ×2 (09:35)
--- NOTE | 2020-03-10 09:41 | NUR ---
SPOKE WITH THE PT AND WENT THRU THE EXT MED HISTORY TO COMPLETE THE MED REC PT COULD NOT REMEMBER THE NAMES OF HER MEDICATIONS, BUT WHEN I LISTED THEM FROM THE EXT MED HISTORY SHE WAS ABLE TO TELL ME HOW/WHEN SHE TAKES EACH ACCORDING TO THE PT SHE TAKES TYLENOL XTRA STRENGTH AND ALEVE- 1 TAB OF BID (SCHEDULED NOT PRN) OTC MEDS: TYLENOL ALEVE MTV ZYRTEC DOCUSATE
--- NOTE | 2020-03-10 09:44 | NUR ---
VACOMYCIN DOSING SCR 1.06; ACT BW 53.6 KG; CRCL ~ 33; BOLUS VANC 20 MG/KG X 53 KG ~ 1 GM THEN VANC 15 MG/KG ~ 750 MG Q24H CHECK TROUGH LEVEL BEFORE THIRD DOSE 03/12 0900 HOLD DOSE AND CONTACT PHARMACY IF LEVEL IS GREATER THAN 20
[2020-03-10] MEDS ORDERED: cefTRIAXone 1,000 MG/SWFI 10 ML IV PUSH IV SCH ×2 (10:00)
--- NOTE | 2020-03-10 12:00 | Progress Note-Pre Operative ---
Pre-Operative Progress Note H&P Reviewed The H&P was reviewed, patient examined and no changes noted. Date Seen by Provider: Mar 10, 2020 Time Seen by Provider: 11:30 Date H&P Reviewed: Mar 10, 2020 Time H&P Reviewed: 11:30 Pre-Operative Diagnosis: left groin and mons pubis abscess CARLOS WALKER MD Mar 10, 2020 12:00
--- NOTE | 2020-03-10 12:34 | NUR ---
Contacted Dr Walton regarding critical WBC on patient of 40.1. He gave me orders to change antibiotics. Also paged Dr Toledo who came to the bedside.
--- NOTE | 2020-03-10 12:36 | NUR ---
Called Dr Walton at 1207 due to patients continuing decline and syncope episode when getting her up to use the bedside commode. He indicated she would be going to surgery soon and placed orders for patient consent which was obtained, patient A?O times 4. Called Dr Walton again at 1220 as rapid response called due to change in patients oxygen needs and low BP. Patient placed in reverse trendelenburg. BP continues low, Dr Walton indicated surgery would be here soon to take patient to surgery as she is more than likely going septic.
[2020-03-10] MEDS ORDERED: ROCURONIUM 10 MG/ML 5 ML SYRINGE IV ONE (12:40)
[2020-03-10] MEDS ORDERED: PHENYLEPHRINE 100 MCG/ML 10 ML (ANESTHESIA) SYR ONE (12:40)
[2020-03-10] MEDS ORDERED: fentaNYL INJECTION 100 MCG/2 ML AMP ONE (12:40)
[2020-03-10] MEDS ORDERED: HEParin (CENTRAL IV FLUSH) 500 UNIT/5 ML SYR ONE (12:41)
[2020-03-10] MEDS: LACTATED RINGERS 1,000 ML IV PRN ×3 (13:01→14:15)
--- NOTE | 2020-03-10 13:14 | Consultation - Hospitalist ---
HPI History of Present Illness: HPI/Chief Complaint Bertha Carter is an 84-year-old female who recently underwent a partial colectomy and hernia repair due to a bowel obstruction. She reports having right lower quadrant abdominal pain. She has been having nausea and vomiting. She denies any fevers or chills. She denies chest pain. She denies shortness of breath and cough. She denies diarrhea. She has had no hematemesis or hematochezia. Source: patient Exam Limitations: no limitations Date Seen 03/10/20 Attending Physician Zach Walton MD PCP Fabian River DO Referring Physician Date of Admission Mar 09, 2020 at 12:00 Home Medications & Allergies Home Medications Reviewed patient Home Medication Reconciliation performed by pharmacy medication reconciliations low voltage technician and/or nursing. Patients Allergies have been reviewed. Allergies Allergies Coded Allergies No Allergy Information Available (Bvejpinhax18/8/20) Past Ajoobld-Qrpblm-Mvsrng Hx Past Med/Social Hx: Reviewed Nursing Past Med/Soc Hx Patient Social History Alcohol Use: Denies Use Recreational Drug Use: No Smoking Status: Never a Smoker Recent Foreign Travel: No Contact w/other who traveled: No Recent Hopitalizations: No Recent Infectious Disease Expo: No Immunizations Up To Date Date of Pneumonia Vaccine: Mar 09, 2018 Date of Influenza Vaccine: Dec 08, 2019 Seasonal Allergies Seasonal Allergies: Yes Past Medical History Surgeries: Hysterectomy, Orthopedic Cardiac: High Cholesterol Loss of Vision: Denies Hearing Impairment: Denies Psychosocial: Anxiety Family History Hypertension, Stroke Review of Systems Constitutional: no symptoms reported EENTM: no symptoms reported Respiratory: no symptoms reported Cardiovascular: no symptoms reported Gastrointestinal: abdominal pain, nausea, vomiting Genitourinary: no symptoms reported Musculoskeletal: no symptoms reported Skin: no symptoms reported Psychiatric/Neurological: No Symptoms Reported Physical Exam Physical Exam Vital Signs Vital Signs - First Documented 03/09/20 03/09/20 03/10/20 09:49 12:43 12:24 Temp 36.6 Pulse 105 Resp 20 B/P (MAP) 142/70 (94) Pulse Ox 98 O2 Delivery Room Air O2 Flow Rate 2.00 Capillary Refill : Less Than 3 SecondsLess Than 3 Seconds Height, Weight, BMI Height: '" Weight: lbs. oz. kg; 20.27 BMI Method: General Appearance: WD/WN, Moderate Distress HEENT: PERRL/EOMI, Pharynx Normal Neck: Normal Inspection, Supple Respiratory: Lungs Clear, Normal Breath Sounds, No Respiratory Distress Cardiovascular: Regular Rate, Rhythm, No Edema, No Murmur, Normal Peripheral Pulses Gastrointestinal: Soft, Abnormal Bowel Sounds (hypoactive), Mass (firm right- sided lower quadrant), Tenderness Extremity: Normal Inspection, Non Tender, No Pedal Edema Neurologic/Psychiatric: Alert, Oriented x3, No Motor/Sensory Deficits, Normal Mood/Affect Skin: Normal Color, Warm/Dry Results Results/Procedures Labs Laboratory Tests 03/09/20 09:58 03/10/20 07:00 03/10/20 08:20 Patient resulted labs reviewed. Imaging: Reviewed Imaging Report Assessment/Plan Assessment and Plan Assess & Plan/Chief Complaint Sepsis Cellulitis Likely abdominal abscess UTI s/p partial small bowel resection s/p inguinal hernia repair SIRS+ with leukocytosis and tachycardia CT Abdomen with subcutaneous edema, no abscess Started on Rocephin and Flagyl WBC increased to 40 today Worsening symptoms this morning Dr. Walton planning for surgery today Transitioned to Vancomycin and Zosyn Urine culture with E coli, susceptibilities pending Continue IV fluids DVT Prophylaxis: held for procedure Diagnosis/Problems Diagnosis/Problems (1) Sepsis Status: Acute Qualifiers: Sepsis type: sepsis due to unspecified organism Sepsis acute organ dysfunction status: without acute organ dysfunction Qualified Codes: A41.9 - Sepsis, unspecified organism (2) Cellulitis Status: Acute Qualifiers: Site of cellulitis: extremity Site of cellulitis of extremity: lower extremity Laterality: right Qualified Codes: L03.115 - Cellulitis of right lower limb (3) UTI (urinary tract infection) Status: Acute Qualifiers: Urinary tract infection type: acute cystitis Hematuria presence: without hematuria Qualified Codes: N30.00 - Acute cystitis without hematuria (4) S/P small bowel resection Status: Chronic (5) S/P inguinal hernia repair Status: Chronic Clinical Quality Measures DVT/VTE Risk/Contraindication: Risk Factor Score Per Nursin RFS Level Per Nursing on Admit: 2=Moderate REBA VELIZ MD Mar 10, 2020 13:14
[2020-03-10] MEDS ORDERED: LIDOCAINE/EPI 1%-1:100,000 (XYLOCAINE) 50 ML INJ ONE (14:20)
[2020-03-10] MEDS ORDERED: PHENYLEPHRINE INJ 10 MG/ML (FOR DRIP KITS ONLY) ONE ×3 (14:29→19:46)
[2020-03-10] MEDS ORDERED: ONDANSETRON 4 MG/2 ML (SDV) Z0FRAN ONE (14:29)
[2020-03-10] MEDS ORDERED: NEOSTIGMINE 3 MG/3 ML VIAL ONE (14:40)
[2020-03-10] MEDS ORDERED: GLYCOPYRROLATE 0.2 MG/ML (ROBINUL) 2 ML VIAL ONE (14:40)
[2020-03-10] MEDS ORDERED: proPOfol 200 MG/20 ML (DIPRIVAN) VIAL IV ONE (14:44)
--- NOTE | 2020-03-10 14:45 | NUR ---
"RD ASSESSMENT PMHx: hypercholesterolemia; inguinal hernia repair 02/11/2020 PT INTERACTION: Pt was awake and pleasant during nutrition assessment. Pt states current appetite is poor. Note avg PO intake <25% x2meal, per chart review. Pt states following a regular diet at home, and has no issues with chewing/swallowing food. Pt states recent issues with nausea, vomiting, and constipation, and that her last BM was 03/08. Note episode of emesis on 03/10, per chart review. Note pt not currently on bowel regimen per chart review. Pt states recent wt loss, but was unsure of amount/timeframe. Note unable to determine recent wt hx, per chart review. Est. kcal needs: 7161-0727 kcal | 25-30 kcal/kg Est. Pro needs: 65-76 g Pro | 1.2-1.4 g Pro/kg PES STATEMENT: Inadequate oral intake (NI-2.1) related to loss of appetite, nausea, vomiting, and constipation, as evidenced by pt interview, chart review, and avg PO intake <25% meals. INTERVENTION: Note pt is currently NPO, per chart review. Would recommend diet advancement when medically able and as tolerated. Pt would likely benefit from nutrition supplementation upon diet advancement. Will continue to follow and reassess as pt needs, intake, and status change. Shanda ADAIR, RD LD [phone] cell"
--- NOTE | 2020-03-10 14:51 | Progress Note-Post Operative ---
Post-Operative Progess Note Surgeon (s)/Solar Installation Supervisor (s) Surgeon CARLOS WALKER MD Solar Installation Supervisor: none Pre-Operative Diagnosis right groin and mons pubis abscess Post-Operative Diagnosis right groin and labia majora complex abscess and mild necrotic debris. Procedure & Operative Findings Date of Procedure 03/10/20 Procedure Performed/Findings incision drainage and debridement skin, subcutaneous, fascia complex perineal abscess 20x5cm Anesthesia Type get with local Estimated Blood Loss Estimated blood loss (mL): minimal Specimens/Packing Specimens Removed necrotic perineal subcutaneous tissue and fascia CARLOS WALKER MD Mar 10, 2020 14:51
[2020-03-10] MEDS ORDERED: SEVOFLURANE (ULTANE) 15 ML INHAL SOLN ONE (15:10)
[2020-03-10] MEDS ORDERED: LIDOCAINE PF 2% 5 ML (XYLOCAINE) VIAL ONE (15:10)
[2020-03-10] MEDS ORDERED: HYDROmorphone 2 MG/ML VIAL (DILAUDID) IV ONE (15:15)
[2020-03-10] MEDS ORDERED: morphine INJ 10 MG/ML 1ML (SYR OR VIAL) IVP ONE (15:15)
[2020-03-10] MEDS ORDERED: MEPERIDINE (DEMEROL) INJ 50 MG/ML IVP ONE (15:15)
[2020-03-10] MEDS ORDERED: ONDANSETRON 4 MG/2 ML (SDV) Z0FRAN IVP PRN (15:15)
[2020-03-10] MEDS ORDERED: NOREPINEPHRINE 4 MG/250 ML 250 ML IV ONE (15:28)
--- NOTE | 2020-03-10 15:30 | NUR ---
PT TRANSFERRED FROM 401 TO OR TO CU8 ON VENT. DERIAN RIVET TESTER AT BEDSIDE ALONG Waldemar/ ANU MCCARTNEY. PT PLACED ON MONITORS. DR WALKER EN ROUTE TO PLACE NEW CENTRAL LINE. DR ARMANDO NOTIFIED OF NEW PT. NEW ORDERS RECEIVED.
[2020-03-10] MEDS ORDERED: fentaNYL DRIP PRE-MIX 250 ML IV ONE (15:50)
[2020-03-10] MEDS ORDERED: PROPOFOL DRIP (ICU) 100 ML IV ONE (15:50)
[2020-03-10] MEDS ORDERED: NOREPINEPHRINE 4 MG/250 ML 250 ML IV SCH (16:00)
[2020-03-10] MEDS ORDERED: fentaNYL DRIP PRE-MIX 250 ML IV SCH (16:00)
[2020-03-10] MEDS ORDERED: PROPOFOL DRIP (ICU) 100 ML IV SCH (16:00)
[2020-03-10] MEDS ORDERED: LACTATED RINGERS 1,000 ML IV SCH (16:00)
[2020-03-10] MEDS ORDERED: VASOPRESSIN INJECTION 20 UNIT/ML VIAL ONE (16:05)
[2020-03-10] MEDS ORDERED: NS (IVPB) 100 ML ONE (16:06)
[2020-03-10] MEDS: VASOPRESSIN INJECTION 20 UNIT in NS (IVPB) 100 ML IV SCH ×2 (16:12→22:49)
--- NOTE | 2020-03-10 16:43 | Diagnostic Imaging Report ---
INDICATION: Central line placement. FINDINGS: A catheter has been placed via the left, remains left of midline, its distal tip just above the left mainstem bronchus. Previous CT reviewed showed no left-sided SVC and its malpositioning is presumed. New from yesterday's normal radiograph is abnormal fullness of the mediastinum. Superior mediastinum today measuring about 10 cm transverse and yesterday was maximal 4.5 cm. Hematoma is suspected. There is new biapical pleural fluid, small in volume as well. There is no pneumothorax. There is an OG catheter in good position within the stomach. There is an ET tube in good position mid thoracic trachea. IMPRESSION: 1. Presumed malpositioned left-sided central catheter with new abnormal fullness of the mediastinum suspicious for hematoma. Biapical pleural capping has also developed which may be apical pleural fluid as well. 2. No pneumothorax. The remaining support apparatus in good alignment. These results have been discussed by phone with the ordering physician. Dictated by: Dictated on workstation # [id number]
[2020-03-10] MEDS ORDERED: LACTATED RINGERS 1,000 ML IV ONE (17:00)
[2020-03-10] MEDS ORDERED: PIPERACILLIN/TAZOBACTAM (BULK) 4.5 GM in NS (IVPB) 100 ML IV SCH (17:00)
--- NOTE | 2020-03-10 17:00 | Diagnostic Imaging Report ---
INDICATION: Central line. FINDINGS: The previous left sided catheter has been removed. A right subclavian line distally is directed inferiorly along the SVC. The ET tube and OG catheter remain in stable and good alignment. The fullness of the mediastinum is at least somewhat less conspicuous than on the most recent exam measuring about 7.5 cm transverse. Its reduction is likely owing to semiupright positioning. No pneumothorax. The previous biapical capping at the apical pleura is also less pronounced. IMPRESSION: 1. Central line placed on the right in good position. No pneumothorax. Abnormal contour and fullness of the mediastinum is less pronounced than on the earlier radiograph. Some of this is likely owing to altered positioning. Biapical capping of the pleura is also less pronounced. There are no findings to suggest progression of suspected mediastinal fluid. 2. No adverse interval development. Dictated by: Dictated on workstation # [id number]
[2020-03-10 17:06] LABS: ABG BASE EXCESS -17.8 MMOL/L (-2.5-2.5); ABG OXYGEN SATURATION 99 % (94-100); ABG PCO2 26 MMHG (35-45); ABG PO2 159 MMHG (79-93); ABG TCO2 10.7 MMOL/L (21.0-31.0)
[2020-03-10 17:08] LABS: ALLENS TEST ART LINE; INSPIRED O2 60%; VENTILATOR YES
[2020-03-10 17:09] LABS: ABG PH 7.17 (7.37-7.43); PATIENT TEMP 33.3
--- NOTE | 2020-03-10 17:29 | NUR ---
pts temp 30.1, janett hugger and blankets applied.
[2020-03-10 17:49] LABS: BASOPHILS # (AUTO) 0.2 10^3/uL (0.0-0.1); BASOPHILS % (AUTO) 0 % (0-10); EOSINOPHILS # (AUTO) 0.9 10^3/uL (0.0-0.3); EOSINOPHILS % (AUTO) 2 % (0-10); HEMATOCRIT 45 % (35-52); HEMOGLOBIN 14.3 g/dL (11.5-16.0); LYMPHOCYTES # (AUTO) 9.4 10^3/uL (1.0-4.0); LYMPHOCYTES % (AUTO) 17 % (12-44); MEAN CORPUSCULAR HEMOGLOBIN 33 pg (25-34); MEAN CORPUSCULAR HGB CONC 32 g/dL (32-36); MEAN CORPUSCULAR VOLUME 102 fL (80-99); MONOCYTES # (AUTO) 5.5 10^3/uL (0.0-1.0); MONOCYTES % (AUTO) 10 % (0-12); NEUTROPHILS # (AUTO) 32.8 10^3/uL (1.8-7.8); NEUTROPHILS % (AUTO) 59 % (42-75); PLATELET COUNT 120 10^3/uL (130-400)
[2020-03-10 17:54] LABS: ALBUMIN 1.6 GM/DL (3.2-4.5); POTASSIUM 5.5 MMOL/L (3.6-5.0)
[2020-03-10 17:56] LABS: CALCIUM 7.4 MG/DL (8.5-10.1)
[2020-03-10 17:57] LABS: TOTAL PROTEIN 3.4 GM/DL (6.4-8.2)
[2020-03-10 17:57] LABS: WHITE BLOOD COUNT 55.9 10^3/uL (4.3-11.0)
[2020-03-10 17:58] LABS: BILIRUBIN,TOTAL 0.3 MG/DL (0.1-1.0)
[2020-03-10 18:00] LABS: PHOSPHORUS 7.1 MG/DL (2.3-4.7)
[2020-03-10] MEDS ORDERED: SODIUM BICARB 8.4% 50 MEQ/50 ML VIAL IV NR (18:00)
[2020-03-10 18:01] LABS: CREATININE SERUM 1.45 MG/DL (0.60-1.30)
[2020-03-10 18:04] LABS: MAGNESIUM 1.9 MG/DL (1.6-2.4)
[2020-03-10 18:06] LABS: ANISOCYTOSIS SLIGHT; BAND NEUTROPHILS 12 %; BASOPHILS % (MANUAL) 0 %; EOSINOPHILS % (MANUAL) 0 %; LYMPHOCYTES % (MANUAL) 6 %; METAMYELOCYTES % 1 %; MONOCYTES % (MANUAL) 6 %; NEUTROPHILS % (MANUAL) 62 %; POLYCHROMASIA SLIGHT; REACTIVE LYMPHOCYTES 13 %; SMUDGE CELLS MOD; TOXIC GRANULATION/VACUOLAZATIO 2+
--- NOTE | 2020-03-10 18:11 | NUR ---
ALL LAB RESULTS GIVEN TO DR ARMANDO.
[2020-03-10] MEDS: NOREPINEPHRINE 8 MG in NS (IVPB) 242 ML IV SCH ×3 (18:22→22:57)
--- NOTE | 2020-03-10 18:52 | NUR ---
PTS DAUGHTER DEVON UPDATED ON PTS CONDITION.
--- NOTE | 2020-03-10 19:38 | NUR ---
1937- This nurse called tele ICU and notified that patient is maxed out on levo and vaso, her blood pressure is systolic 50's diastolic 40's. placing order to start phenylephrine also 2004- This nurse notified that I am unable to obtain to obtain an oxygen saturation, RT has been trying as well and it cannot be obtained on any of patients limbs. Patient also does not have a palpable pulse to any of her limbs, a pulse can only be heard apically. placing order for 1L LR. 2012- This nurse called patients daughter Brittanie, Brittanie placed this nurse on speaker phone so I could also speak with patients daughter Rachel. I updated Brittanie and Rachel on patients status. Daughters requested to speak with a physician about their mothers status. I updated patients daughters that I would reach out to to see if he could please call them, they were appreciative. 2025- After getting off the phone with patients daughters this nurse called to update him that patients daughters were requesting to speaking with a physician, stated that he would call them back, this nurse gave him their phone number. 2044- called this nurse, he let me know that he spoke with patients daughters, and that they would like to make the patient a DNR, no CPR, they would like to continue with the efforts that are being made at this time but none further. 2051- This nurse called to update him on patients resulted ABG- ordering 2 amps, 100 of bicarb. 2199- restraints removed 2208- this nurse notified on patients critical lactic acid of 13.35. 2218- This nurse called patients daughters Brittanie and Rachel after speaking with the data warehouse specialist, and offered to them to come up to see their mother because her condition is worsening. around 2244 daughters Brittanie and Rachel arrived to patients room [address] Aide notified 2314 patient went into Asystole- daughters at bedside. this nurse checked to confirm that there was no heart beat, Timo HUYNH also confirmed that there was no heart beat. 2316 this nurse notified of patient having no heart beat. notified of patient having no heart beat. 0007 This nurse called [facility]. Referal number [id number], [facility] stated that the body could be released att, the patient is not eligible due to age. 0018- This nurse called [facility] and notified them of patients passing, per patients daughters request. 0125- [facility] here to get patient, patients dentures given to home.
[2020-03-10] MEDS ORDERED: NS (IVPB) 0 ML ONE (19:42)
[2020-03-10] MEDS ORDERED: PHENYLEPHRINE INJECTION 20 MG in NS (IVPB) 250 ML IV SCH (19:45)
[2020-03-10] MEDS ORDERED: NS IV 1000 ML 1,000 ML IV SCH (20:15)
[2020-03-10] MEDS ORDERED: EPINEPHrine (OMNICELL DRIP KIT ONLY) 1 MG/ML AMP ONE (20:28)
[2020-03-10] MEDS ORDERED: NS (IVPB) 250 ML ONE (20:28)
[2020-03-10 20:41] LABS: ABG BASE EXCESS -21.7 MMOL/L (-2.5-2.5); ABG OXYGEN SATURATION 99 % (94-100); ABG PCO2 20 MMHG (35-45); ABG PO2 208 MMHG (79-93); ABG TCO2 7.1 MMOL/L (21.0-31.0)
[2020-03-10 20:46] LABS: INSPIRED O2 60; PATIENT TEMP 35.8; VENTILATOR YES
[2020-03-10 20:47] LABS: ABG PH 7.11 (7.37-7.43)
[2020-03-10] MEDS ORDERED: SODIUM BICARB 8.4% 50 MEQ/50 ML VIAL IV ONE (21:00)
--- NOTE | 2020-03-10 21:16 | OPERATIVE REPORT ---
DATE OF SERVICE: 03/10/2020 ATTENDING PRIMARY CARE PHYSICIAN: Fabian River DO PREOPERATIVE DIAGNOSES: Right perineal complex abscess and sepsis. POSTOPERATIVE DIAGNOSES: Early necrotizing soft tissue infection with a complex abscess with multiple subcutaneous pocket. This started at the lateral aspect of the inguinal ligament and extended to the anterior aspect of the labia majora, dimensions approximately 20 x 5 cm in size. There was some necrotic debris identified, which included the skin, subcutaneous tissue as well as fascia. PROCEDURES: Incision, drainage and debridement of skin, subcutaneous tissue and fascia, right perineum 20 x 5 cm in size, left subclavian central venous catheter. SURGEON: Carlos Walker MD ANESTHESIA: General endotracheal with local. ESTIMATED BLOOD LOSS: Minimal. FINDINGS: Early necrotizing soft tissue infection with a complex abscess with multiple subcutaneous pocket. This started at the lateral aspect of the inguinal ligament and extended to the anterior aspect of the labia majora, dimensions approximately 20 x 5 cm in size. There was some necrotic debris identified, which included the skin, subcutaneous tissue as well as fascia. DISPOSITION: The patient tolerated the procedure well. INDICATIONS: The patient is an 84-year-old female, who was found to have a symptomatic right inguinal hernia. She underwent a laparoscopic right inguinal hernia repair with mesh as well as a small bowel resection on 02/12/2020. She presented to the Emergency Department with right inguinal pain, swelling and redness. She states that she was otherwise eating well and having normal bowel function; however, had a poor appetite. She was admitted and placed on antibiotics; however, she became septic with increased fullness in the right perineal region with a decreased blood pressure as well as a significant increase in white count elevation to 40,000. This was worrisome for a potential necrotizing soft tissue infection. DESCRIPTION OF PROCEDURE: The patient was brought to the operating room, laid supine on the table. After adequate IV pain and sedative medications and general endotracheal intubation, the chest and neck were prepped and draped in standard surgical fashion. The left subclavian vein was then cannulated withdrawing of venous blood. The guidewire was then inserted without any resistance. The cannulating needle removed and a skin incision made using 11 blade. A tract was then created using a venous dilator and through this opening, a triple lumen central venous catheter was placed over the guidewire using the Seldinger technique. The guidewire was then removed and all three ports mandi venous blood and saline pushed in without any resistance. The catheter was then sutured to the skin using interrupted 3-0 silk sutures. Catheter was then cleaned and covered with Op-Site. The patient was then placed in modified lithotomy position and the perineum and abdomen prepped and draped in standard surgical fashion. A 1% lidocaine with epinephrine was used to anesthetize the overlying skin in the right lower abdominal quadrant as well as the perineum. A skin incision along the direction of the inguinal ligament was made using a 15 blade and extended into the mid labia majora. There was a whitish fluid with a tracking as well as a mild amount of necrotic subcutaneous tissue and fascia. We then proceeded with a blunt dissection until a strong fascia was identified. Total area encompassed approximately 20 x 5 cm in size. A 3/4 inch [place] drain was then placed on the inferior aspect of the labia majora. Good hemostasis was achieved using electrocautery and the open wound was copiously irrigated with a power general supervisor. The open wound was then packed with iodine-soaked Kerlix followed by 4 x 4 gauze, followed by ABD pad and mesh shorts. The patient tolerated the procedure well. We will admit her to the ICU and continue with broad spectrum antibiotics as well as frequent reevaluation of the wound and possible placement of a wound VAC. Job ID: [id number] DocumentID: [id number] Dictated Date: 03/10/2020 15:00:29 Dumper Bailer Operator Date: 03/10/2020 21:15:13 Dictated By: CARLOS WALKER MD [facility] CENTERSangita
[2020-03-11] MEDS ORDERED: inSUlin ASPART (NovoLOG) 1 UNIT/0.01 ML (CHARGE PER UNIT) SC SCH
--- NOTE | 2020-03-11 | NUR ---
Patients daughters Brittanie and Rachel both state that patient arrived to hospital with a large king purse that has 2 handles and 3 large compartments. Purse is not in patients room or locked up outside of the room. Patient was in room 401 on 4th floor, this nurse went to 401 to look for the purse, it was not there. This nurse called ED and spoke with Magda RABAGO, she looked around the ED and did not find a king purse. This nurse notified boiler repair supervisor's Kierra on patients missing purse as reported by patients daughters. I let patients daughters know of the places I looked purse and that I notified supervisors. Patients daughter's took patients belongings in her room, her phone, phone quality lab assoc, glasses and clothing items home with them. Patients dentures sent with [facility] when they came to nut picker patient.
--- NOTE | 2020-03-11 00:15 | OPERATIVE REPORT ---
DATE OF SERVICE: 03/10/2020 PREOPERATIVE DIAGNOSIS: Sepsis with malpositioned left subclavian central line. POSTOPERATIVE DIAGNOSIS: Sepsis with malpositioned left subclavian central line. PROCEDURE: Placement of right subclavian central venous catheter, removal of left. SURGEON: Carlos Walker MD. ANESTHESIA: Local. ESTIMATED BLOOD LOSS: Minimal. FINDINGS: Catheter tip at superior vena cava - right atrial junction. DISPOSITION: The patient tolerated the procedure well. INDICATIONS: The patient is an 84-year-old female with redness, swelling as well as leukocytosis and fever, redness and swelling of the right groin as well as leukocytosis and fevers consistent with sepsis and an abscess. She is status post incision and drainage of a complex abscess as well as early necrotizing soft tissue infection. Before the procedure, a left subclavian central venous catheter was placed; however, this appeared to be malpositioned in the postoperative chest x-ray. The right chest and neck were prepped and draped in standard surgical fashion. A 1% lidocaine was used to anesthetize the left subclavian region. The left subclavian vein was cannulated with drawing of venous blood. The guidewire was then inserted without any resistance and the cannulating needle removed. A skin incision was made using 11 blade and a tract created using a venous dilator and through this opening, a triple lumen central venous catheter was placed over the guidewire using the Seldinger technique and the guidewire removed. All three ports mandi venous blood and saline pushed in without any resistance. Catheter was then sutured to the skin using 3-0 silk interrupted sutures and covered with Op-Site. The sutures to the left subclavian catheter were then removed and withdrawn while holding strong and steady pressure for 15 minutes with good hemostasis identified and then 4 x 4 gauze followed by Op-Site followed by sandbag was placed. The patient tolerated the procedure well. Job ID: [id number] DocumentID: [id number] Dictated Date: 03/10/2020 17:00:33 Animal Trapper Date: 03/11/2020 00:15:18 Dictated By: CARLOS WALKER MD [facility]
--- NOTE | 2020-03-11 06:55 | Anesthesia-General Post-Op ---
General Patient Condition Mental Status/LOC: Same as Preop Cardiovascular: Satisfactory Nausea/Vomiting: Absent Respiratory: Satisfactory Pain: Controlled Complications: Absent Post Op Complications Complications None Follow Up Care/Instructions Patient Instructions None needed. Anesthesia/Patient Condition Patient Condition Patient is doing well, no complaints, stable vital signs, no apparent adverse anesthesia problems. No complications reported per nursing. SEAN MANRIQUE CRNA Mar 11, 2020 06:55
[2020-03-11] MEDS ORDERED: VANCOMYCIN 750 MG/NS 250 ML IVPB IV SCH ×2 (10:00)
[2020-03-12] MEDS ORDERED: TROUGH ORDER-PHARMACY XX NR (09:00)
== END 2020-03-10 23:15 | disposition expired | DRG 856 ==
LOC: EDUNIT# 09:43 → ER 09:46 → 4TH 12:00 → ICU 03-10 12:52
PROVIDERS: ADMIT Surgery; ATTEND Surgery
PROC: 0JBB0ZZ Excision of Perineum Subcutaneous Tissue and Fascia, Open Approach (ICD-10-PCS; principal; 2020-03-10 13:01)
DX: T81.44XA Sepsis following a procedure, initial encounter (principal); A41.9 Sepsis, unspecified organism; L02.215 Cutaneous abscess of perineum; L03.315 Cellulitis of perineum; N39.0 Urinary tract infection, site not specified; T81.41XA Infection following a procedure, superficial incisional surgical site, initial encounter; M72.8 Other fibroblastic disorders; Z66 Do not resuscitate; Z20.822 Contact with and (suspected) exposure to COVID-19; E78.00 Pure hypercholesterolemia, unspecified; F41.9 Anxiety disorder, unspecified; Z79.899 Other long term (current) drug therapy; Z82.3 Family history of stroke; Z82.49 Family history of ischemic heart disease and other diseases of the circulatory system; Z90.710 Acquired absence of both cervix and uterus
CPT/HCPCS: 36415; 71045; 74177; 80053; 81000; 82805; 82962; 83605; 83690; 83735; 84100; 84145; 84478; 85007; 85025; 85027; 85610; 85730; 87040; 87070; 87075; 87077; 87081; 87088; 87186; 87205; 87635; 93005; 94002; 94799